=== PATIENT | male | born 1960 | race Caucasian/White ===

== ENCOUNTER 2016-08-30 06:13 | Emergency (ER) | payer OTHER ==
--- NOTE | 2016-08-30 08:26 | EDDOCDS ---
Nurse's Notes [facility] Name: Murtaza Queen Age: 56 yrs Sex: Male : 1960 Arrival Date: 08/30/2016 Time: 06:13 Bed I5 / M5 Private MD: Diagnosis: Fall on same level from slipping, tripping and stumbling;Contusion of left elbow Presentation: 08/30 06:20 Presenting complaint: Patient states: Fell yesterday at approx 3-4pm landing on left kmg1 elbow. This morning woke with swelling in left hand and pain left elbow. Suicide/Homicide risk assessment- the patient denies having any suicidal and/or homicidal ideations and does not present with any other emotional, behavioral or mental health complaints. Status: Patient is not a service delivery consultant or dependent. Transition of care: patient was not received from another setting of care. 06:20 Acuity: MULU Level 4 km 06:20 Method Of Arrival: Walkin[place] [facility] Adult Sepsis Screening: The patient does not have new or worsening altered mentation. ck1 Patient's respiratory rate is less than 22. Systolic blood pressure is greater than 100. Patient has a qSOFA score of 0- Negative Sepsis Screen. Triage Assessment: 06:24 General: Appears in no apparent distress, comfortable, Behavior is appropriate for age, kmg1 cooperative, pleasant. Pain: Location: left elbow Pain currently is 1 out of 10 on a pain scale. Quality of pain is described as aching, tender. HIV screening NA for this visit. Musculoskeletal: Circulation, motion, and sensation intact Capillary refill < 3 seconds Swelling present in left hand and left arm. Historical: - Allergies: No known drug Allergies; - Home Meds: 1. naproxen 500 mg Oral TbEC 1 tab 2 times per day for Bursitis (Last dose: 08/29/2016) - PMHx: none; - PSHx: right hand surgery; - Social history: Smoking status: Patient states former smoker of tobacco. No barriers to communication noted, The patient speaks fluent Uruguayan, Speaks appropriately for age. - Family history: Not pertinent. - : The pt / caregiver states he / she is not on anticoagulants. Home medication list is obtained from the patient. - Exposure Risk Screening:: None identified. Screenin:38 Screening information is obtained from the patient. Primary language is Uruguayan. Fall ck1 risk: No risks identified. Assistance ADL's: requires no assistance with activities of daily living. Abuse/DV Screen: The patient / caregiver reports he/she is: not in a situation that causes fear, pain or injury. Nutritional screening: No deficits noted. Advance Directives: Currently, there is no health care proxy. 07:39 home support is adequate. ck1 Assessment: 07:39 General: Appears in no apparent distress, comfortable, Behavior is appropriate for age, ck1 cooperative. Pain: Complains of pain in left elbow Pain currently is 1 out of 10 on a pain scale. Awake, alert, oriented. Skin warm and dry. Moves all extremities. Respirations unlabored. No apparent distress. The patient / caregiver is instructed regarding the plan of care and ED course. Physical assessment to be completed by PA/EDMD. 08:24 General: Appears in no apparent distress, comfortable, Behavior is appropriate for age, ck1 cooperative. Pain: Location: left elbow Pain currently is 1 out of 10 on a pain scale. Derm: Skin is intact, is healthy with good turgor, Skin is pink, warm & dry. Musculoskeletal: Circulation, motion, and sensation intact Range of motion intact in all extremities. Vital Signs: 06:24 BP 136 / 106; Pulse 84; Resp 18; Temp 96.3(O); Pulse Ox 96% on R/A; Weight 95.25 kg [facility] (R); Height 5 ft. 8 in. (172.72 cm) (R); Pain 1/10; 08:23 BP 140 / 92 RA Supine (man/lg); jml1 08:23 Pulse 72; Resp 18; Temp 98.4(TE); Pulse Ox 97% on R/A; Pain 1/10; ck1 06:24 Body Mass Index 31.93 (95.25 kg, 172.72 cm) [facility] Vitals: 06:24 Log In Time: August 30, 2016 at 06:15. [facility] [place] Course: 06:14 Patient visited by Lavinia Aguilar Reg. hs2 06:14 Patient moved to Waiting hs2 06:22 Triage Initiated [facility] 07:08 Patient moved to I5 / ck1 07:09 Patient visited by Jany Bean RN. ck1 07:33 Mandeep Woo PA-C is [facility]. cc10 07:33 Christine Díaz MD is Attending Physician. cc10 07:33 Patient visited by Mandeep Woo PA-C. cc10 07:33 Patient visited by Mandeep Woo PA-C. cc10 07:40 Patient has correct armband on for positive identification. Bed in low position. Call ck1 light in reach. Side rails up X 1. 08:13 [facility] is Referral Physician. cc10 08:16 Patient visited by Kade Ramos. l1 08:23 No IV's were initiated during this patient's visit. No procedures done that require ck1 assistance. Sling applied to left arm. Patient with positive distal sensation and brisk distal capillary refill after application. Order Results: There are currently no results for this order. Outcome: 08:13 Discharge ordered by Provider. cc10 08:24 Discharge Assessment: Patient awake, alert and oriented x 3. No cognitive and/or ck1 functional deficits noted. Patient verbalized understanding of disposition instructions. patient administered narcotics - no. The following High Risk Discharge criteria are identified: None. Discharged to home ambulatory. Condition: stable. Discharge instructions given to patient, Instructed on discharge instructions, follow up and referral plans. medication usage, Demonstrated understanding of instructions, medications, Pt was receptive of discharge instructions/ teaching. Prescriptions given X 1. No special radiology studies were completed. Property :Personal belongings accompany Pt. 08:24 Patient left the ED. ck1 Signatures: Maria Teresa Felton, RN RN km Jany Bean RN RN ck1 Kade Ramos [facility] Mandeep Woo PA-C PA-C cc10 Aguilar Lavinia, Reg Reg hs2 MTDD
--- NOTE | 2016-08-30 08:26 | EDDOCDS ---
Physician Documentation [facility] Name: Murtaza Queen Age: 56 yrs Sex: Male : 1960 Arrival Date: 08/30/2016 Time: 06:13 Bed I5 / M5 Private MD: Disposition: 08/30/16 08:13 Discharged to Home/Self Care. Impression: Fall on same level from slipping, tripping and stumbling, Contusion of left elbow. - Condition is Stable. - Discharge Instructions: Elbow Contusion. - Prescriptions for Ultram 50 mg Oral Tablet - take 1 tablet by ORAL route every 6 hours As needed MDD: 4 tabs; 20 tablet. - Medication Reconciliation, [facility] Followup form. - Follow up: [facility]; When: Call to arrange an appointment; Reason: Wound/Symptom Recheck, Recheck today's complaints, Worsening of conditions, Continuance of care. - Problem is new. - Symptoms are unchanged. Historical: - Allergies: No known drug Allergies; - Home Meds: 1. naproxen 500 mg Oral TbEC 1 tab 2 times per day for Bursitis (Last dose: 08/29/2016) - PMHx: none; - PSHx: right hand surgery; - Social history: Smoking status: Patient states former smoker of tobacco. No barriers to communication noted, The patient speaks fluent Grenadian, Speaks appropriately for age. - Family history: Not pertinent. - : The pt / caregiver states he / she is not on anticoagulants. Home medication list is obtained from the patient. - Exposure Risk Screening:: None identified. Vital Signs: 08/30 06:24 BP 136 / 106; Pulse 84; Resp 18; Temp 96.3(O); Pulse Ox 96% on R/A; Weight 95.25 kg / kmg1 209.99 lbs (R); Height 5 ft. 8 in. (172.72 cm) (R); Pain 1/10; 08:23 BP 140 / 92 RA Supine (man/lg); jml1 08:23 Pulse 72; Resp 18; Temp 98.4(TE); Pulse Ox 97% on R/A; Pain 1/10; ck1 06:24 Body Mass Index 31.93 (95.25 kg, 172.72 cm) kmg1 MDM: 06:33 Forearm (radius/ulna) Ordered. EDMS 06:33 Hand, Complete Ordered. EDMS 07:50 Financial registration complete. mm15 07:55 Elbow, Complete Ordered. EDMS 08:12 Sling ordered. cc10 Signatures: Dispatcher [employer] EDMS Maria Teresa Felton, RN RN kmg1 Jany Bean RN RN ck1 Orlando Reynolds mm15 Mandeep Woo PA-C PAJose Enrique cc10 MTDD
--- NOTE | 2016-08-30 12:44 | REP ---
LEFT FOREARM SERIES, COMPLETE: 08/30/2016. Clinical history: Trauma. Findings: Two views show the radius and ulna without visible or displaced fractures. There is no radiopaque foreign body. Radial head and capitellum align normally. I see no definite avulsion. Impression: 1. No visible fracture, radius or ulna and adjacent wrist and elbow grossly intact. Signed by Tevin Reynaga MD 08/30/2016 07:18 P
--- NOTE | 2016-08-30 12:46 | REP ---
LEFT HAND SERIES, COMPLETE: 08/30/2016. Comparison: Left forearm 08/30/2016, hand 12/10/2013. Clinical history: Trauma. Findings: Four views show no fracture, subluxation or focal bone lesion. The carpal bones and their joint spaces were intact. Metacarpals and phalanges unremarkable. No erosion, foreign body or destructive lesions. Impression: 1. Negative left hand series for fracture, avulsion, erosion or subluxation. Signed by Tevin Reynaga MD 08/30/2016 07:18 P
--- NOTE | 2016-08-30 13:32 | REP ---
LEFT ELBOW SERIES COMPLETE: 08/30/2016. Comparison: Forearm series today. Clinical history: Trauma. Findings: Four views show some soft tissue calcification adjacent to the medial epicondyle consistent with some medial epicondylitis. There is no supracondylar fracture or destructive lesion of the humerus. Radial head and capitellum align normally and are without fracture. The olecranon is intact. There is some soft tissue swelling about the posterior margin of the olecranon but no avulsion of the triceps insertion. No joint effusion. Impression: 1. Findings suggest some epicondylitis about the medial epicondyle without acute fracture, avulsion, joint effusion or other acute bony finding. Minor swelling over the olecranon. Signed by Tevin Reynaga MD 08/30/2016 07:21 P
--- NOTE | 2016-09-01 09:26 | EDDOCDS ---
Physician Documentation [facility] Name: Murtaza Queen Age: 56 yrs Sex: Male : 1960 Arrival Date: 08/30/2016 Time: 06:13 Bed I5 / M5 Private MD: Disposition: 08/30/16 08:13 Discharged to Home/Self Care. Impression: Fall on same level from slipping, tripping and stumbling, Contusion of left elbow. - Condition is Stable. - Discharge Instructions: Elbow Contusion. - Prescriptions for Ultram 50 mg Oral Tablet - take 1 tablet by ORAL route every 6 hours As needed MDD: 4 tabs; 20 tablet. - Medication Reconciliation, [facility] Followup form. - Follow up: [facility]; When: Call to arrange an appointment; Reason: Wound/Symptom Recheck, Recheck today's complaints, Worsening of conditions, Continuance of care. - Problem is new. - Symptoms are unchanged. Historical: - Allergies: No known drug Allergies; - Home Meds: 1. naproxen 500 mg Oral TbEC 1 tab 2 times per day for Bursitis (Last dose: 08/29/2016) - PMHx: none; - PSHx: right hand surgery; - Social history: Smoking status: Patient states former smoker of tobacco. No barriers to communication noted, The patient speaks fluent Malagasy, Speaks appropriately for age. - Family history: Not pertinent. - : The pt / caregiver states he / she is not on anticoagulants. Home medication list is obtained from the patient. - Exposure Risk Screening:: None identified. Vital Signs: 08/30 06:24 BP 136 / 106; Pulse 84; Resp 18; Temp 96.3(O); Pulse Ox 96% on R/A; Weight 95.25 kg / kmg1 209.99 lbs (R); Height 5 ft. 8 in. (172.72 cm) (R); Pain 1/10; 08:23 BP 140 / 92 RA Supine (man/lg); jml1 08:23 Pulse 72; Resp 18; Temp 98.4(TE); Pulse Ox 97% on R/A; Pain 1/10; ck1 06:24 Body Mass Index 31.93 (95.25 kg, 172.72 cm) kmg1 MDM: 06:33 Forearm (radius/ulna) Ordered. EDMS 06:33 Hand, Complete Ordered. EDMS 07:50 Financial registration complete. mm15 07:55 Elbow, Complete Ordered. EDMS 08:12 Sling ordered. cc10 09:48 [facility] Payment Agreement was scanned into [employer] and attached to record. mm15 08/31 14:06 T-Sheet-- Draft Copy was scanned into [employer] and attached to record. gb Signatures: Dispatcher [employer] EDMS Maria Teresa Felton, CEZAR RN kmg1 Estelita Jhaveri, Reg Reg gb Jany Bean RN RN ck1 Orlando Reynolds mm15 Mandeep Woo, PA-C PA-C cc10 The chart was reviewed and I authenticate all verbal orders and agree with the evaluation and treatment provided.Attachments: 08/30 09:48 [facility] Payment Agreement mm15 08/31 14:06 T-Sheet-- Draft Copy gb Chart Complete MTDD
--- NOTE | 2016-09-01 09:26 | EDDOCDS ---
Nurse's Notes [facility] Name: Murtaza Queen Age: 56 yrs Sex: Male : 1960 Arrival Date: 08/30/2016 Time: 06:13 Bed I5 / M5 Private MD: Diagnosis: Fall on same level from slipping, tripping and stumbling;Contusion of left elbow Presentation: 08/30 06:20 Presenting complaint: Patient states: Fell yesterday at approx 3-4pm landing on left kmg1 elbow. This morning woke with swelling in left hand and pain left elbow. Suicide/Homicide risk assessment- the patient denies having any suicidal and/or homicidal ideations and does not present with any other emotional, behavioral or mental health complaints. Status: Patient is not a business services sales representative or dependent. Transition of care: patient was not received from another setting of care. 06:20 Acuity: MULU Level 4 km 06:20 Method Of Arrival: [place]/[facility]std [facility] 07:[place] Adult Sepsis Screening: The patient does not have new or worsening altered mentation. ck1 Patient's respiratory rate is less than 22. Systolic blood pressure is greater than 100. Patient has a qSOFA score of 0- Negative Sepsis Screen. Triage Assessment: 06:24 General: Appears in no apparent distress, comfortable, Behavior is appropriate for age, kmg1 cooperative, pleasant. Pain: Location: left elbow Pain currently is 1 out of 10 on a pain scale. Quality of pain is described as aching, tender. HIV screening NA for this visit. Musculoskeletal: Circulation, motion, and sensation intact Capillary refill < 3 seconds Swelling present in left hand and left arm. Historical: - Allergies: No known drug Allergies; - Home Meds: 1. naproxen 500 mg Oral TbEC 1 tab 2 times per day for Bursitis (Last dose: 08/29/2016) - PMHx: none; - PSHx: right hand surgery; - Social history: Smoking status: Patient states former smoker of tobacco. No barriers to communication noted, The patient speaks fluent Nepalese, Speaks appropriately for age. - Family history: Not pertinent. - : The pt / caregiver states he / she is not on anticoagulants. Home medication list is obtained from the patient. - Exposure Risk Screening:: None identified. Screenin:38 Screening information is obtained from the patient. Primary language is Nepalese. Fall ck1 risk: No risks identified. Assistance ADL's: requires no assistance with activities of daily living. Abuse/DV Screen: The patient / caregiver reports he/she is: not in a situation that causes fear, pain or injury. Nutritional screening: No deficits noted. Advance Directives: Currently, there is no health care proxy. 07:39 home support is adequate. ck1 Assessment: 07:39 General: Appears in no apparent distress, comfortable, Behavior is appropriate for age, ck1 cooperative. Pain: Complains of pain in left elbow Pain currently is 1 out of 10 on a pain scale. Awake, alert, oriented. Skin warm and dry. Moves all extremities. Respirations unlabored. No apparent distress. The patient / caregiver is instructed regarding the plan of care and ED course. Physical assessment to be completed by PA/EDMD. 08:24 General: Appears in no apparent distress, comfortable, Behavior is appropriate for age, ck1 cooperative. Pain: Location: left elbow Pain currently is 1 out of 10 on a pain scale. Derm: Skin is intact, is healthy with good turgor, Skin is pink, warm & dry. Musculoskeletal: Circulation, motion, and sensation intact Range of motion intact in all extremities. Vital Signs: 06:24 BP 136 / 106; Pulse 84; Resp 18; Temp 96.3(O); Pulse Ox 96% on R/A; Weight 95.25 kg [facility] (R); Height 5 ft. 8 in. (172.72 cm) (R); Pain 1/10; 08:23 BP 140 / 92 RA Supine (man/lg); jml1 08:23 Pulse 72; Resp 18; Temp 98.4(TE); Pulse Ox 97% on R/A; Pain 1/10; ck1 06:24 Body Mass Index 31.93 (95.25 kg, 172.72 cm) [facility] Vitals: 06:24 Log In Time: August 30, 2016 at 06:15. [facility] [place] Course: 06:14 Patient visited by Lavinia Aguilar Reg. hs2 06:14 Patient moved to Waiting hs2 06:22 Triage Initiated [facility] 07:08 Patient moved to I5 / ck1 07:09 Patient visited by Jany Bean RN. ck1 07:33 [facility]. cc10 07:33 Christine Díaz MD is Attending Physician. cc10 07:33 Patient visited by Mandeep Woo PA-C. cc10 07:33 Patient visited by Mandeep Woo PA-C. cc10 07:40 Patient has correct armband on for positive identification. Bed in low position. Call ck1 light in reach. Side rails up X 1. 08:13 [facility] is Referral Physician. cc10 08:16 Patient visited by Kade Ramos. jml1 08:23 No IV's were initiated during this patient's visit. No procedures done that require ck1 assistance. Sling applied to left arm. Patient with positive distal sensation and brisk distal capillary refill after application. 09:48 [facility] Payment Agreement was scanned into [employer] and attached to record. mm15 12:47 Forearm (radius/ulna) Returned. EDMS 12:47 Hand, Complete Returned. EDMS 13:56 Elbow, Complete Returned. EDMS 08/31 14:06 T-Sheet-- Draft Copy was scanned into [employer] and attached to record. gb Order Results: Radiology Order: Forearm (radius/ulna) Test: Forearm (radius/ulna) REASON FOR EXAMINATION: Trauma; LEFT FOREARM SERIES, COMPLETE: 08/30/2016.; ; Clinical history: Trauma.; ; Findings: Two views show the radius and ulna without visible or displaced; fractures. There is no radiopaque foreign body. Radial head and capitellum; align normally. I see no definite avulsion.; ; Impression:; ; 1. No visible fracture, radius or ulna and adjacent wrist and elbow grossly; intact.; ; ; Signed by; Tevin Reynaga MD 08/30/2016 07:18 P; Radiology Order: Hand, Complete Test: Hand, Complete REASON FOR EXAMINATION: Trauma; LEFT HAND SERIES, COMPLETE: 08/30/2016.; ; Comparison: Left forearm 08/30/2016, hand 12/10/2013.; ; Clinical history: Trauma.; ; Findings: Four views show no fracture, subluxation or focal bone lesion. The; carpal bones and their joint spaces were intact. Metacarpals and phalanges; unremarkable. No erosion, foreign body or destructive lesions.; ; Impression:; ; 1. Negative left hand series for fracture, avulsion, erosion or subluxation.; ; ; Signed by; Tevin Reynaga MD 08/30/2016 07:18 P; Radiology Order: Elbow, Complete Test: Elbow, Complete REASON FOR EXAMINATION: Trauma; LEFT ELBOW SERIES COMPLETE: 08/30/2016.; ; Comparison: Forearm series today.; ; Clinical history: Trauma.; ; Findings: Four views show some soft tissue calcification adjacent to the medial; epicondyle consistent with some medial epicondylitis. There is no supracondylar; fracture or destructive lesion of the humerus. Radial head and capitellum align; normally and are without fracture. The olecranon is intact. There is some soft; tissue swelling about the posterior margin of the olecranon but no avulsion of; the triceps insertion. No joint effusion.; ; Impression:; ; 1. Findings suggest some epicondylitis about the medial epicondyle without acute; fracture, avulsion, joint effusion or other acute bony finding. Minor swelling; over the olecranon.; ; ; Signed by; Tevin Reynaga MD 08/30/2016 07:21 P; Outcome: 08/30 08:13 Discharge ordered by Provider. cc10 08:24 Discharge Assessment: Patient awake, alert and oriented x 3. No cognitive and/or ck1 functional deficits noted. Patient verbalized understanding of disposition instructions. patient administered narcotics - no. The following High Risk Discharge criteria are identified: None. Discharged to home ambulatory. Condition: stable. Discharge instructions given to patient, Instructed on discharge instructions, follow up and referral plans. medication usage, Demonstrated understanding of instructions, medications, Pt was receptive of discharge instructions/ teaching. Prescriptions given X 1. No special radiology studies were completed. Property :Personal belongings accompany Pt. 08:24 Patient left the ED. ck1 Signatures: Dispatcher [employer] EDMS Maria Teresa Felton RN RN kmg1 Estelita Jhaveri, Reg Reg gb Jany Bean RN RN ck1 Kade Ramos jml1 Orlando Reynolds mm15 Mandeep Woo, PA-C PA-C cc10 Lavinia Aguilar, Reg Reg hs2 Chart Complete MTDD
--- NOTE | 2016-09-01 09:26 | EDDOCDS ---
Physician Documentation [facility] Name: Murtaza Queen Age: 56 yrs Sex: Male : 1960 Arrival Date: 08/30/2016 Time: 06:13 Bed I5 / M5 Private MD: Disposition: 08/30/16 08:13 Discharged to Home/Self Care. Impression: Fall on same level from slipping, tripping and stumbling, Contusion of left elbow. - Condition is Stable. - Discharge Instructions: Elbow Contusion. - Prescriptions for Ultram 50 mg Oral Tablet - take 1 tablet by ORAL route every 6 hours As needed MDD: 4 tabs; 20 tablet. - Medication Reconciliation, [facility] Followup form. - Follow up: [facility]; When: Call to arrange an appointment; Reason: Wound/Symptom Recheck, Recheck today's complaints, Worsening of conditions, Continuance of care. - Problem is new. - Symptoms are unchanged. Historical: - Allergies: No known drug Allergies; - Home Meds: 1. naproxen 500 mg Oral TbEC 1 tab 2 times per day for Bursitis (Last dose: 08/29/2016) - PMHx: none; - PSHx: right hand surgery; - Social history: Smoking status: Patient states former smoker of tobacco. No barriers to communication noted, The patient speaks fluent Georgian, Speaks appropriately for age. - Family history: Not pertinent. - : The pt / caregiver states he / she is not on anticoagulants. Home medication list is obtained from the patient. - Exposure Risk Screening:: None identified. Vital Signs: 08/30 06:24 BP 136 / 106; Pulse 84; Resp 18; Temp 96.3(O); Pulse Ox 96% on R/A; Weight 95.25 kg / kmg1 209.99 lbs (R); Height 5 ft. 8 in. (172.72 cm) (R); Pain 1/10; 08:23 BP 140 / 92 RA Supine (man/lg); jml1 08:23 Pulse 72; Resp 18; Temp 98.4(TE); Pulse Ox 97% on R/A; Pain 1/10; ck1 06:24 Body Mass Index 31.93 (95.25 kg, 172.72 cm) kmg1 MDM: 06:33 Forearm (radius/ulna) Ordered. EDMS 06:33 Hand, Complete Ordered. EDMS 07:50 Financial registration complete. mm15 07:55 Elbow, Complete Ordered. EDMS 08:12 Sling ordered. cc10 09:48 [facility] Payment Agreement was scanned into [employer] and attached to record. mm15 08/31 14:06 T-Sheet-- Draft Copy was scanned into [employer] and attached to record. gb Signatures: Dispatcher [employer] EDMS Maria Teresa Felton, CEZAR RN kmg1 Estelita Jhaveri, Reg Reg gb Jany Bean RN RN ck1 Orlando Reynolds mm15 Mandeep Woo, PA-C PA-C cc10 The chart was reviewed and I authenticate all verbal orders and agree with the evaluation and treatment provided.Attachments: 08/30 09:48 [facility] Payment Agreement mm15 08/31 14:06 T-Sheet-- Draft Copy gb Chart Complete MTDD
== END 2016-08-30 08:24 | disposition home or self-care (01) ==
LOC: M ED 06:13
DX: S50.02XA Contusion of left elbow, initial encounter (principal); W00.9XXA Unspecified fall due to ice and snow, initial encounter; Y92.410 Unspecified street and highway as the place of occurrence of the external cause; Y93.89 Activity, other specified; Y99.8 Other external cause status; Z79.1 Long term (current) use of non-steroidal anti-inflammatories (NSAID); Z87.891 Personal history of nicotine dependence

== ENCOUNTER → 2016-10-06 | Outpatient (REF) | payer OTHER | LOC: M LABNEURO 10:32 | PROVIDERS: ATTEND Psychiatry & Neurology Neurology | DX: G25.81 Restless legs syndrome (principal) ==

== ENCOUNTER → 2016-10-09 | Outpatient (CLI) | payer OTHER ==
--- NOTE | 2016-10-09 11:13 | REP ---
Clinical: Shortness of breath . Comparison: 07/07/2010 . Technique: PA and lateral. Findings: The mediastinum and cardiac silhouette are normal. The lung wilhelm are clear and without acute consolidation, effusion, or pneumothorax. The skeletal structures are intact and normal. Impression: 1. No acute cardiopulmonary process. Signed by Pablo Newberry MD 10/09/2016 11:05 A
== END ==
LOC: M WUC 10:41
PROVIDERS: ATTEND Nurse Practitioner Family
DX: R06.02 Shortness of breath (principal)

== ENCOUNTER → 2019-01-14 | Outpatient (CLI) | payer OTHER | LOC: M WUC 15:48 | PROVIDERS: ATTEND Physician Assistant | DX: M25.571 Pain in right ankle and joints of right foot (principal) ==

== ENCOUNTER → 2019-07-20 | Outpatient (CLI) | payer OTHER ==
--- NOTE | 2019-07-20 13:52 | REP ---
Clinical: Sprain . Technique: Internal rotation, external rotation, and Y view right shoulder . Findings: No acute fracture or dislocation. The acromioclavicular and glenohumeral joints are intact. No periarticular calcifications or degenerative changes are appreciated. Sub acromial space is normal. Surrounding soft tissues are unremarkable. Impression: Normal age-appropriate right shoulder radiographs. Electronically Signed by Pablo Newberry MD 07/20/2019 01:44 P
== END ==
LOC: M WUC 13:29
PROVIDERS: ATTEND Physician Assistant
DX: S46.011A Strain of muscle(s) and tendon(s) of the rotator cuff of right shoulder, initial encounter (principal); X58.XXXA Exposure to other specified factors, initial encounter; Y92.89 Other specified places as the place of occurrence of the external cause

== ENCOUNTER 2020-11-12 19:28 | Emergency (ER) | payer OTHER ==
[~2020-11-12] VITALS: Ht 172.7 cm; Wt 96.8 kg
[2020-11-12] MEDS ORDERED: LOSA50TA88 PO (19:49)
[2020-11-12] MEDS ORDERED: NS 1,000 ML IV ONE (20:30)
[2020-11-12] MEDS ORDERED: METOCLOPRAMIDE INJ 10MG/2ML VIAL (J2765 PER 1) IV ONE (20:30)
[2020-11-12] MEDS ORDERED: KETOROLAC 30 MG/ML 1ML VIAL IV ONE (20:30)
[2020-11-12] MEDS ORDERED: diphenhydrAMINE 50MG/ML VIAL (J1200) IV ONE (20:30)
[2020-11-12 20:53] LABS: BASO % 0.1 % (0.0-1.0); EOS % 0.1 % (0.0-3.0); HEMATOCRIT 42.3 % (42.0-52.0); LYMPH # 0.4 10^3/uL (1.5-5.0); LYMPH % 6.3 % (24.0-44.0); MEAN CORPUSCULAR HEMOGLOBIN 29.8 pg (27.0-33.0); MEAN CORPUSCULAR HGB CONC 35.5 g/dl (32.0-36.5); MEAN CORPUSCULAR VOLUME 84.1 fl (80.0-96.0); MONO # 0.4 10^3/uL (0.0-0.8); NEUTROPHILS # 5.9 10^3/uL (1.5-8.5); NEUTROPHILS % 86.6 % (36.0-66.0); PLATELET COUNT, AUTOMATED 165 10^3/uL (150-450); RED BLOOD COUNT 5.03 10^6/uL (4.30-6.10); WHITE BLOOD COUNT 6.8 10^3/uL (4.0-10.0)
[2020-11-12 21:15] LABS: ALBUMIN 3.4 GM/DL (3.2-5.2); ALT/SGPT 26 U/L (12-78); BILIRUBIN,TOTAL 0.9 MG/DL (0.2-1.0); BLOOD UREA NITROGEN 25 MG/DL (7-18); CALCIUM LEVEL 8.1 MG/DL (8.8-10.2); CARBON DIOXIDE LEVEL 25 MEQ/L (21-32); CHLORIDE LEVEL 102 MEQ/L (98-107); CREATININE FOR GFR 0.97 MG/DL (0.70-1.30); GLOMERULAR FILTRATION RATE > 60.0 (>49); GLUCOSE, FASTING 108 MG/DL (70-100); POTASSIUM SERUM 3.4 MEQ/L (3.5-5.1); SODIUM LEVEL 135 MEQ/L (136-145); TOTAL PROTEIN 6.6 GM/DL (6.4-8.2)
[2020-11-12] MEDS ORDERED: ACETAMINOPHEN TAB 650MG DOSE (2X325MG) PO ONE (21:25)
--- NOTE | 2020-11-12 22:08 | REPVR ---
PROCEDURE INFORMATION: Exam: XR Chest Exam date and time: 11/12/2020 9:57 PM Age: 60 years old Clinical indication: Cough; Additional info: Coronavirus workup TECHNIQUE: Imaging protocol: XR of the chest. Views: 1 view. COMPARISON: CR CHEST 2 VIEW 10/09/2016 10:51 AM FINDINGS: Lungs: Suggestion of small peripheral infiltrates demonstrated in both lung bases in right mid lung zone. Clinical correlation to exclude multifocal pneumonitis suggested. Pleural spaces: Unremarkable. No pleural effusion. No pneumothorax. Heart/Mediastinum: Unremarkable. No cardiomegaly. Bones/joints: Unremarkable. IMPRESSION: Suggestion of small peripheral infiltrates demonstrated in both lung bases in right mid lung zone. Clinical correlation to exclude multifocal pneumonitis suggested. Electronically signed by: Nick Michaels On 11/12/2020 22:08:17 PM
[2020-11-12 23:27] VITALS: O2SAT 93
[2020-11-13 00:45] VITALS: BP 128/80
--- NOTE | 2020-11-13 09:19 | ED PDOC ---
Post-Departure Follow-Up cxr formal report faxed to dr schaefer for fu Christine Suarez MD Nov 13, 2020 09:19
== END 2020-11-13 00:55 | disposition home or self-care (01) ==
LOC: M ED 19:28
DX: U07.1 COVID-19 (principal); G43.909 Migraine, unspecified, not intractable, without status migrainosus; I10 Essential (primary) hypertension
CPT/HCPCS: 71045; 80053; 85025; 96361; 96374; 99285; J1200; J1885; J2765

== ENCOUNTER → 2021-06-14 | Outpatient (CLI) | payer OTHER ==
[~2021-06-14] MED LIST: BAYE81TA10 PO; LOSA50TA88 PO
== END ==
LOC: M LABSMTC 11:40
PROVIDERS: ATTEND Anesthesiology
DX: Z01.818 Encounter for other preprocedural examination (principal); Z11.52 Encounter for screening for COVID-19

== ENCOUNTER 2021-06-19 10:28 | Day surgery (SDC) | payer OTHER ==
[~2021-06-19] VITALS: Ht 172.7 cm; Wt 96.2 kg
[~2021-06-19 10:28] MED LIST changes: +LIDOCAINE 2% 100MG/5ML SDV (FOR ANES.) As Ordered ONE; +NS 1,000 ML IV ONE; +propofoL 200 MG/20 ML VIAL As Ordered ONE
--- OUTSIDE RECORDS SUMMARY | 2021-06-19 10:36 | CCD | Continuity of Care Document ---
Author Author Lab Schedule, Murtaza Jara Organization Unknown Address [address] [address] Phone Unavailable Care Team Providers Care Feed In Worker Name Role Phone Kiko Conteh MD [facility] [phone] Problems Description No Information Available Social History Type Date Description Comments Sex Unknown ETOH Use Rarely consumes alcohol Special occasions only Tobacco Use Start: Unknown End: Unknown Patient is a former smoker 1 PPD x 15 yrs, Quit at age 29 Allergies, Adverse Reactions, Alerts Description No Known Drug Allergies Medications Active Medications SIG Qnty Indications Ordering Provide r Date Cozaar 50mg Tablets 1 by mouth every day 90tabs Kiko Conteh M.D. 05/26/2019 History Medications Zithromax 250mg Tablets 2 tablets today and then one daily x 4 6tabs Kiko Conteh M.D. 10/18 - 04/11/2021 Prednisone 20mg Tablets 3 tabs x 3 days, then 2 tabs x3 days then 1 tab x 3 days then 1/2 tab x 4 days. 20tabs Kiko Conteh M.D. 11/08/2020 - 04/11/2021 Medications Administered in Office Medication SIG Qnty Indications Ordering Provider Date Immunization Adminstration,1 Vaccine/Tox oid Injection Kiko Conteh M.D. 019 Immunization Adminstration,1 Vaccine/Tox oid Injection Kiko Conteh M.D. 018 Immunizations CPT Code Status Date Vaccine Lot # [id number] Given 05/10/2019 Influenza Vaccin e Quadrivalent Preser/Antibiotic Free Im Use [id number] Given 05/09/2018 Influenza Virus Vaccine, Quadrivalent (Cciiv4), Derived From 1 Given 05/06/2017 Adacel- Tetanus Diphtheria P ertussis [id number] Vital Signs Date Vital Result Comment 04/11/2021 2:31pm BP Systolic 144 mmHg BP Diastolic 98 mmHg BP Systolic Recheck 145 mmHg BP Diastolic Recheck 90 mmHg Heart Rate 76 /min Height 67.50 inches 5'7.50" Weight 214.00 lb BMI (Body Mass Index) 33.0 kg/m2 05/13/2020 8:07am BP Systolic 132 mmHg BP Diastolic 94 mmHg BP Systolic Recheck 130 mmHg BP Diastolic Recheck 82 mmHg Heart Rate 76 /min Height 67.50 inches 5'7.50" Weight 214.00 lb BMI (Body Mass Index) 33.0 kg/m2 Results Test Acquired Date Facility Test Result H/L Range Note Comprehensive Chem Profile 04/10/2021 [facility] Oral Surgery Assistant: [place] [address] [phone] Glucose 86 mg/dL 74 - 99 1 BUN 20 mg/dL High 7 - 18 Creatinine 1.1 mg/dL 0.6 - 1.3 Sodium 141 mEq/L 136 - 145 Potassium 4.4 mEq/L 3.5 - 5.1 Chloride 106 mEq/L 98 - 107 Carbon Dioxide 30 mEq/L 21 - 32 Calcium 9.4 mg/dL 8.5 - 10.1 Alk. Phosphatase 83 mg/dL 46 - 116 Total Bilirubin 1.1 mg/dL High 0.2 - 1.0 Ast (Sgot) 16 U/L 15 - 37 Alt (SGPT) 35 U/L 12 - 78 Albumin 4.3 g/dL 3.4 - 5.0 Total Protein 6.8 g/dL 6.4 - 8.2 A/G Ratio 1.72 CALC 1.00 - 1.90 GFR >= 60 mL/min >60 GFR >= 60 mL/min >60 2 Lipid Profile 04/10/2021 [facility] [place] Oral Surgery Assistant: Dr El[place] [address] [phone] Cholesterol 192 mg/dL 131 - 200 Triglycerides 89 mg/dL 30 - 150 HDL Cholesterol 42 mg/dL 35 - 60 LDL (Calculated) 132 CALC 50 - 159 CBC With Differential 11/12/[address] [id number] [phone] White Blood Count 6.8 10 Normal 4.0-10.0 Red Blood Count 5.03 10 Normal 4.30-6.10 Hemoglobin 15.0 g/dL Normal 13.5-17.5 Hematocrit 42.3 % Normal 42.0-52.0 Mean Corpuscular Volume 84.1 fl Normal 80.0-96.0 Mean Corpuscular Hemoglobin 29.8 pg Normal 27.0-33.0 Mean Corpuscular HGB Conc 35.5 g/dL Normal 32.0-36.5 Red Cell Distribution Width 11.3 % Low 11.5-14.5 Platelet Count, Automated 165 10 Normal 150-450 Neutrophils % 86.6 % High 36.0-66.0 Lymph % 6.3 % Low 24.0-44.0 Towns % 6.0 % Normal 2.0-8.0 Eos % 0.1 % Normal 0.0-3.0 Baso % 0.1 % Normal 0.0-1.0 Immature Granulocyte % 0.9 % Normal 0-3.0 Nucleated Red Blood Cell % 0.0 % Normal 0-0 Neutrophils # 5.9 10 Normal 1.5-8.5 Lymph # 0.4 10 Low 1.5-5.0 Towns # 0.4 10 Normal 0.0-0.8 Eos # 0.0 10 Normal 0.0-0.5 Baso # 0.0 10 Normal 0.0-0.2 Comprehensive Metabolic Profil 11/12/[address] [id number] [phone] Glucose, Fasting 108 mg/dL High 70-100 Blood Urea Nitrogen 25 mg/dL High 7-18 Creatinine For GFR 0.97 mg/dL Normal 0.70-1.30 Glomerular Filtration Rate > 60.0 Normal >49 3 Sodium Level 135 mEq/L Low 136-145 Potassium Serum 3.4 mEq/L Low 3.5-5.1 Chloride Level 102 mEq/L Normal 98-107 Carbon Dioxide Level 25 mEq/L Normal 21-32 Anion Gap 8 mEq/L Normal 8-16 Calcium Level 8.1 mg/dL Low 8.8-10.2 Ast/Sgot 23 U/L Normal 7-37 Alt/SGPT 26 U/L Normal 12-78 Alkaline Phosphatase 58 U/L Normal 45-117 Bilirubin,Total 0.9 mg/dL Normal 0.2-1.0 Total Protein 6.6 GM/DL Normal 6.4-8.2 Albumin 3.4 GM/DL Normal 3.2-5.2 Albumin/Globulin Ratio 1.1 Normal 1 100-125 mg/dL PRE-DIABET ES/FASTING >126 mg/dL DIABETES/FASTING 2 CHRONIC KIDNEY DISEASE STAGI NG PER NKF STAGE I & II GFR >= 60 NORMAL TO MILDLY DECREASED STAGE III GFR 30-59 MODERATELY DECREASED STAGE IV GFR 15-29 SEVERELY DECREASED STAGE V GFR <15 VERY LITTLE GFR LEFT ESRD GFR <15 ON PAINTER APPRENTICE 3 Units are mL/min/1.73 m2 Chronic Kidney Disease Staging per NKF: Stage I & II GFR >=60 Normal to Mildly Decreased Stage III GFR 30-59 Moderately Decreased Stage IV GFR 15-29 Severely Decreased Stage V GFR <15 Very Little GFR Left ESRD GFR <15 on PAINTER APPRENTICE Procedures Date Code Description Status 10/02/2010 [id number] Colonoscopy Completed Medical Devices Description No Information Available Encounters Description No Information Available Assessments Date Code Description Provider 04/11/2021 E78.5 Hyperlipidemia, unspecified David Conteh M.D. 04/11/2021 I10 Essential (primary) hypertension Kiko Conteh M.D. 04/11/2021 G47.33 Obstructive sleep apnea (adult) (pediatric) Kiko Conteh M.D. 04/11/2021 Z86.16 Personal history of Covid-19 Alonzo Conteh M.D. 04/10/2021 I10 Essential (primary) hypertension Kiko Conteh M.D. 04/10/2021 I10 Essential (primary) hypertension Lab Schedule 04/10/2021 E78.5 Hyperlipidemia, unspecified David Conteh M.D. 04/10/2021 E78.5 Hyperlipidemia, unspecified Lab Schedule Plan of Treatment Future Appointment(s):* 10/02/2021 7:40 am - Lab Schedule at [facility] * 10/03/2021 8:00 am - Kiko Conteh M.D. at [facility] * 05/12/2021 8:00 am - ROBERT Kan JR at [facility] 04/11/2021 - Kiko Conteh M.D.* E78.5 Hyperlipidemia, unspecified * I10 Essential (primary) hypertension * G47.33 Obstructive sleep apnea (adult) (pediatric) * Z86.16 Personal history of Covid-19 * * Comments:* 1. Hyperlipidemia: Cholesterol is slightly high. We discussed about his 10 year risk, which is high at 10%. We also discussed importance of taking baby aspirin and statin medication to prevent heart attack and stroke. Patient is not interested at this point, but will work on dietary changes especially will avoid junk foods. We will continue to monitor.2. Hypertension: Restart Cozaar (stopped on own). His blood pressure was high initially as well as on recheck.3. Obstructive sleep apnea: Patient has not been using CPAP. We again discussed today the importance of using CPAP and associated risk of stroke or heart attack without treatment of sleep apnea.4. Personal history of Covid-19: No lingering symptoms. Headaches improved. We will monitor.Ongoing cares: Will see Ted in 1 month for a blood pressure follow up specifically and me in 5 months with CMP, lipids and TSH. If he has new problems or issues sooner he will let us know. Functional Status Description No Information Available Mental Status Description No Information Available Referrals Description No Information Available
--- OUTSIDE RECORDS SUMMARY | 2021-06-19 10:36 | CCD | Continuity of Care Document ---
Author Author Murtaza REYES M.D. Organization Unknown Address [address] [facility] [address] [place] [address] Phone [phone] Care Team Providers Care Land Leveler Name Role Phone [facility] MD [facility] [phone] Problems Description No Information Available Social History Type Date Description Comments Sex Unknown ETOH Use Rarely consumes alcohol Special occasions only Tobacco Use Start: Unknown End: Unknown Patient is a former smoker 1 PPD x 15 yrs, Quit at age 29 Allergies and adverse reactions Description No Known Drug Allergies Medications Active Medications SIG Qnty Indications Ordering Provide r Date Cozaar 50mg Tablets 1 by mouth every day 90tabs Kiko Reyes M.D. 05/26/2019 History Medications Zithromax 250mg Tablets 2 tablets today and then one daily x 4 6tabs Kiko Reyes M.D. 10/18 - 04/11/2021 Prednisone 20mg Tablets 3 tabs x 3 days, then 2 tabs x3 days then 1 tab x 3 days then 1/2 tab x 4 days. 20tabs Kiko Reyes M.D. 11/08/2020 - 04/11/2021 Medications Administered in Office Medication SIG Qnty Indications Ordering Provider Date Immunization Adminstration,1 Vaccine/Tox oid Injection Kiko Reyes M.D. 019 Immunization Adminstration,1 Vaccine/Tox oid Injection Kiko Reyes M.D. 018 Immunizations CPT Code Status Date Vaccine Lot # [id number] Given 05/10/2019 Influenza Vaccin e Quadrivalent Preser/Antibiotic Free Im Use [id number] Given 05/09/2018 Influenza Virus Vaccine, Quadrivalent (Cciiv4), Derived From 0 Given 05/06/2017 Adacel- Tetanus Diphtheria P ertussis [id number] Vital Signs Date Vital Result Comment 04/11/2021 [...] H/L Range Note Comprehensive Chem Profile 04/10/2021 [facility] Bread Stacker: [place] [address] [phone] Glucose 86 mg/dL 74 - 99 1 [...] 60 mL/min >60 2 Lipid Profile 04/10/2021 [facility] Bread Stacker: [place] [address] [phone] Cholesterol 192 mg/dL 131 - 200 Triglycerides 89 mg/dL 30 - 150 HDL Cholesterol 42 mg/dL 35 - 60 LDL (Calculated) 132 CALC 50 - 159 CBC With Differential 11/12/2020 [place] [place] [place] [address] [phone] White Blood Count 6.8 10 Normal 4.0-10.0 [...] 36.0-66.0 Lymph % 6.3 % Low 24.0-44.0 [place] % 6.0 % Normal 2.0-8.0 Eos % 0.1 % Normal 0.0-3.0 Baso % 0.1 % Normal 0.0-1.0 Immature Granulocyte % 0.9 % Normal 0-3.0 Nucleated Red Blood Cell % 0.0 % Normal 0-0 Neutrophils # 5.9 10 Normal 1.5-8.5 Lymph # 0.4 10 Low 1.5-5.0 [place] # 0.4 10 Normal 0.0-0.8 Eos # 0.0 10 Normal 0.0-0.5 Baso # 0.0 10 Normal 0.0-0.2 Comprehensive Metabolic Profil 11/12/[address] [id number] [phone] Glucose, Fasting 108 mg/dL High 70-100 Blood [...] LITTLE GFR LEFT ESRD GFR <15 ON MANAGER PERSONAL 3 Units are mL/min/1.73 m2 Chronic Kidney Disease Staging per NKF: Stage I & II GFR >=60 Normal to Mildly Decreased Stage III GFR 30-59 Moderately Decreased Stage IV GFR 15-29 Severely Decreased Stage V GFR <15 Very Little GFR Left ESRD GFR <15 on MANAGER PERSONAL Procedures Date Code Description Status 04/11/2021 84152 Office/Outpatient Established Lo w MDM 20-29 Min Completed 10/02/2010 [id number] Colonoscopy Completed Medical Devices Description No Information Available Encounters Type Date Location Provider Dx Diagnosis Office Visit 04/11/2021 2:00p [facility] Kiko Reyes M.D. E78.5 Hyperlipidemia, unspecified I10 Essential (primary) hyperten stephanie G47.33 Obstructive sleep apnea (polo lt) (pediatric) Z86.16 Personal history of Covid-19 Assessments Date Code Description Provider 04/11/2021 E78.5 Hyperlipidemia, unspecified David Reyes M.D. 04/11/2021 I10 Essential (primary) hypertension Kiko Reyes M.D. 04/11/2021 G47.33 Obstructive sleep apnea (adult) (pediatric) Kiko Reyes M.D. 04/11/2021 Z86.16 Personal history of Covid-19 Alonzo Reyes M.D. 04/10/2021 I10 Essential (primary) hypertension Kiko Reyes M.D. 04/10/2021 I10 Essential (primary) hypertension Lab Schedule 04/10/2021 E78.5 Hyperlipidemia, unspecified David Reyes M.D. 04/10/2021 E78.5 Hyperlipidemia, unspecified Lab Schedule Plan of Treatment Future Appointment(s):* 05/19/2021 8:20 am - ROBERT Kan JR at [facility] * 10/02/2021 7:40 am - Lab Schedule at [facility] * 10/03/2021 8:00 am - Kiko Reyes M.D. at [facility] 04/11/2021 - Kiko Reyes M.D.* E78.5 Hyperlipidemia, unspecified * I10 Essential [...] Mental Status Description No Information Available Referrals Refer to Reason for Referral Status Appt Date Gregg Dimas JR, MD CONSULT FOR UMBILICAL HERNIA AND SCREE REBEKA COLONOSCOPY Patient Notified 04/30/2021 [facility] General Surgery [address] [facility] [address] [facility] [address] [phone]
--- OUTSIDE RECORDS SUMMARY | 2021-06-19 10:36 | CCD ---
Continuity of Care Document (CCD) Created on: 05/19/2021 Murtaza Queen JR External Reference #: [id number] : [id number] Sex: Male Author Author Murtaza COLEMAN PA Organization Unknown Address [address] [facility] [address] [place] [address] Phone [phone] Care Team Providers Care Cloth Feeder Name Role Phone Kiko Conteh MD [facility] [phone] Problems Description No Information Available Social History [...] every day 90tabs Kiko Conteh M.D. 05/26/2019 Medications Administered in Office Medication SIG Qnty Indications Ordering Provider Date Immunization Adminstration,1 Vaccine/Tox oid Injection Kiko Conteh M.D. 019 Immunization Adminstration,1 Vaccine/Tox oid Injection Kiko Conteh M.D. 018 Immunizations CPT Code Status Date Vaccine Lot # [id number] Given 05/10/2019 Influenza Vaccin e Quadrivalent Preser/Antibiotic Free Im Use [id number] 01484 Given 05/09/2018 Influenza Virus Vaccine, Quadrivalent (Cciiv4), Derived From 3 Given 05/06/2017 Adacel- Tetanus Diphtheria P ertussis [id number] Vital Signs Date Vital Result Comment 05/19/2021 8:28am BP Systolic 130 mmHg BP Diastolic 80 mmHg Heart Rate 85 /min Height 67.50 inches 5'7.50" Weight 218.00 lb BMI (Body Mass Index) 33.6 kg/m2 04/11/2021 2:31pm BP Systolic 144 mmHg BP Diastolic 98 mmHg BP Systolic Recheck 145 mmHg BP Diastolic Recheck 90 mmHg Heart Rate 76 /min Height 67.50 inches 5'7.50" Weight 214.00 lb BMI (Body Mass Index) 33.0 kg/m2 Results Test Acquired Date Facility Test Result H/L Range Note Comprehensive Chem Profile 04/10/2021 [facility] [place] Hole Digger Operator: Dr Elieser Zheng [place], [place] [address] [phone] Glucose 86 mg/dL 74 - 99 1 [...] 60 mL/min >60 2 Lipid Profile 04/10/2021 [facility] [place] Hole Digger Operator: Dr Elieser Zheng [place], [place] [id number] [phone] Cholesterol 192 mg/dL 131 - 200 Triglycerides 89 mg/dL 30 - 150 HDL Cholesterol 42 mg/dL 35 - 60 LDL (Calculated) 132 CALC 50 - 159 1 100-125 mg/dL PRE-DIABET ES/FASTING >126 mg/dL DIABETES/FASTING 2 CHRONIC KIDNEY DISEASE STAGI NG PER NKF STAGE I & II GFR >= 60 NORMAL TO MILDLY DECREASED STAGE III GFR 30-59 MODERATELY DECREASED STAGE IV GFR 15-29 SEVERELY DECREASED STAGE V GFR <15 VERY LITTLE GFR LEFT ESRD GFR <15 ON ADVERTISING SALES EXECUTIVE Procedures Date Code Description Status 04/11/2021 32745 Office/Outpatient Established Lo w MDM 20-29 Min Completed 10/02/2010 [id number] Colonoscopy Completed Medical Devices Description No Information Available Encounters Type Date Location Provider Dx Diagnosis Office Visit 04/11/2021 2:00p [facility] E78.5 Hyperlipidemia, unspecified I10 Essential (primary) [...] 10/02/2021 7:40 am - Lab Schedule at [facility] * 10/03/2021 8:00 am - Kiko Conteh M.D. at [facility] Functional Status Description No Information Available Mental Status Description No Information Available Referrals Refer to Reason for Referral Status Appt Date Gregg Dimas JR, MD CONSULT FOR UMBILICAL HERNIA AND SCREE REBEKA COLONOSCOPY Patient Notified 04/30/2021 [facility] General Surgery [address] [facility] [address] [place] [address] [phone]
--- OUTSIDE RECORDS SUMMARY | 2021-06-19 10:36 | CCD | Continuity of Care Document ---
Author Author Murtaza REYES M.D. Organization Unknown Address [address] [facility] [address] [place] [address] Phone [phone] Care Team Providers Care Furnace Repair Mechanic Name Role Phone Kiko Reyes MD [facility] [phone] Problems Description No Information Available Social History Type Date Description Comments Sex Unknown ETOH Use Rarely consumes alcohol Special occasions only Tobacco Use Start: Unknown End: Unknown Patient is a former smoker 1 PPD x 15 yrs, Quit at age 29 Allergies, Adverse Reactions, Alerts Description No Known Drug Allergies Medications Active Medications SIG Qnty Indications Ordering Provide r Date Zithromax 250mg Tablets 2 tablets today and then one daily x 4 6tabs Kiko Reyes M.D. 10/18 Prednisone 20mg Tablets 3 tabs x 3 days, then 2 tabs x3 days then 1 tab x 3 days then 1/2 tab x 4 days. 20tabs Kiko Reyes M.D. 11/08/2020 Cozaar 50mg Tablets 1 by mouth every day 30tabs Kiko Reyes M.D. 05/26/2019 Medications Administered in Office Medication SIG Qnty Indications Ordering Provider Date Immunization Adminstration,1 Vaccine/Tox oid Injection Kiko Reyes M.D. 019 Immunization Adminstration,1 Vaccine/Tox oid Injection Kiko Reyes M.D. 018 Immunizations CPT Code Status Date Vaccine Lot # [id number] Given 05/10/2019 Influenza Vaccin e Quadrivalent Preser/Antibiotic Free Im Use [id number] 95412 Given 05/09/2018 Influenza Virus Vaccine, Quadrivalent (Cciiv4), Derived From 5 Given 05/06/2017 Adacel- Tetanus Diphtheria P ertussis [id number] Vital Signs Date Vital Result Comment 04/11/2021 2:31pm BP Systolic 144 mmHg BP Diastolic 98 mmHg Heart Rate 76 /min Height 67.50 [...] H/L Range Note Comprehensive Chem Profile 04/10/2021 [facility] Air And Water Tester: [place] [address] [phone] Glucose 86 mg/dL 74 - 99 1 [...] 60 mL/min >60 2 Lipid Profile 04/10/2021 [facility] Air And Water Tester: [place] [address] [phone] Cholesterol 192 mg/dL 131 - 200 Triglycerides 89 mg/dL 30 - 150 HDL Cholesterol 42 mg/dL 35 - 60 LDL (Calculated) 132 CALC 50 - 159 CBC With Differential 11/12/2020 [facility] [address] [place] [address] [phone] White Blood Count 6.8 10 Normal 4.0-10.0 [...] 36.0-66.0 Lymph % 6.3 % Low 24.0-44.0 [place] % 6.0 % Normal 2.0-8.0 Eos % 0.1 % Normal 0.0-3.0 Baso % 0.1 % Normal 0.0-1.0 Immature Granulocyte % 0.9 % Normal 0-3.0 Nucleated Red Blood Cell % 0.0 % Normal 0-0 Neutrophils # 5.9 10 Normal 1.5-8.5 Lymph # 0.4 10 Low 1.5-5.0 [place] # 0.4 10 Normal 0.0-0.8 Eos # 0.0 10 Normal 0.0-0.5 Baso # 0.0 10 Normal 0.0-0.2 Comprehensive Metabolic Profil 11/12/[address] [address] [phone] Glucose, Fasting 108 mg/dL High 70-100 Blood [...] LITTLE GFR LEFT ESRD GFR <15 ON TWIST MAKER 3 Units are mL/min/1.73 m2 Chronic Kidney Disease Staging per NKF: Stage I & II GFR >=60 Normal to Mildly Decreased Stage III GFR 30-59 Moderately Decreased Stage IV GFR 15-29 Severely Decreased Stage V GFR <15 Very Little GFR Left ESRD GFR <15 on TWIST MAKER Procedures Date Code Description Status 10/02/2010 [id number] Colonoscopy Completed Medical Devices Description No Information Available Encounters Description No Information Available Assessments Description No Information Available Plan of Treatment 05/06/2017 - Kiko Reyes M.D.* Z00.00 Encntr for general adult medical exam w/o abnormal findings * R07.9 Chest pain, unspecified * Z13.220 Encounter for screening for lipoid disorders * G47.33 Obstructive sleep apnea (adult) (pediatric) * F43.20 Adjustment disorder, unspecified * Z12.5 Encounter for screening for malignant neoplasm of prostate * Z23 Encounter for immunization * Z13.89 Encounter for screening for other disorder * Functional Status Description No Information Available Mental Status Description No Information Available Referrals Description No Information Available
--- OUTSIDE RECORDS SUMMARY | 2021-06-19 10:36 | CCD | Continuity of Care Document ---
Author Author Murtaza COLEMAN PA Organization Unknown Address [address] [facility] [address] [place] [address] Phone [phone] Care Team Providers Care Representative Name Role Phone Kiko Conteh MD [facility] [phone] Problems Description No Information Available Social History [...] CPT Code Status Date Vaccine Lot # [id number] Given 05/10/2019 Influenza Vaccin e Quadrivalent Preser/Antibiotic Free Im Use [id number] Given 05/09/2018 Influenza Virus Vaccine, Quadrivalent (Cciiv4), Derived From 6 Given 05/06/2017 Adacel- Tetanus Diphtheria P ertussis [id number] Vital Signs Date Vital Result Comment 05/19/2021 [...] Date Facility Test Result H/L Range Note Basic Metabolic Panel 05/19/2021 [facility] Diesel Pile Hammer Operator: Dr Elieser Zheng [place], [place] [id number] [phone] Glucose 106 mg/dL High 74 - 99 1 BUN 21 mg/dL High 7 - 18 Creatinine 1.1 mg/dL 0.6 - 1.3 Sodium 144 mEq/L 136 - 145 Potassium 4.5 mEq/L 3.5 - 5.1 Chloride 109 mEq/L High 98 - 107 Carbon Dioxide 29 mEq/L 21 - 32 Calcium 9.9 mg/dL 8.5 - 10.1 GFR >= 60 mL/min >60 GFR >= 60 mL/min >60 2 Comprehensive Chem Profile 04/10/2021 [facility] Diesel Pile Hammer Operator: Dr Elieser [place]heng [place] [id number] [phone] Glucose 86 mg/dL 74 - 99 3 BUN 20 mg/dL High 7 - 18 [...] mL/min >60 GFR >= 60 mL/min >60 4 Lipid Profile 04/10/2021 [facility] Diesel Pile Hammer Operator: Dr Elieser [place]heng [place] [id number] [phone] Cholesterol 192 mg/dL 131 - 200 Triglycerides [...] LITTLE GFR LEFT ESRD GFR <15 ON CROCHET MACHINE OPERATOR 3 100-125 mg/dL PRE-DIABET ES/FASTING >126 mg/dL DIABETES/FASTING 4 CHRONIC KIDNEY DISEASE STAGI NG PER NKF STAGE I & II GFR >= 60 NORMAL TO MILDLY DECREASED STAGE III GFR 30-59 MODERATELY DECREASED STAGE IV GFR 15-29 SEVERELY DECREASED STAGE V GFR <15 VERY LITTLE GFR LEFT ESRD GFR <15 ON CROCHET MACHINE OPERATOR Procedures Date Code Description Status 04/11/2021 13877 Office/Outpatient Established Lo w MDM 20-29 Min Completed 10/02/2010 [id number] Colonoscopy Completed Medical Devices Description No Information Available Encounters Type Date Location Provider Dx Diagnosis Office Visit 04/11/2021 2:00p [facility] Kiko Conteh M.D. E78.5 Hyperlipidemia, unspecified I10 Essential [...] 10/02/2021 7:40 am - Lab Schedule at [facility] * 10/03/2021 8:00 am - Kiko Conteh M.D. at [facility] Functional Status Description No Information Available Mental Status Description No Information Available Referrals Refer to Dr Reason for Referral Status Appt Date Gregg Dimas JR, MD CONSULT FOR UMBILICAL HERNIA AND YELENAE REBEKA COLONOSCOPY Patient Notified 04/30/2021 [facility] General Surgery [address] [address] [phone]
--- OUTSIDE RECORDS SUMMARY | 2021-06-19 10:36 | CCD | Continuity of Care Document ---
Author Author Lab Schedule, Murtaza Jara Organization Unknown Address [address] [address] Phone Unavailable Care Team Providers Care Desizing Machine Back Tender Name Role Phone Kiko Conteh MD [facility] [phone] Problems Description No Information Available Social History [...] x 4 6tabs Kiko Conteh M.D. 10/18 Prednisone 20mg Tablets 3 tabs x 3 days, then 2 tabs x3 days then 1 tab x 3 days then 1/2 tab x 4 days. 20tabs Kiko Conteh M.D. 11/08/2020 Cozaar 50mg Tablets 1 by mouth every day 30tabs Kiko Conteh M.D. 05/26/2019 Medications Administered in Office Medication SIG Qnty Indications Ordering Provider Date Immunization Adminstration,1 Vaccine/Tox oid Injection Kiko Conteh M.D. 019 Immunization Adminstration,1 Vaccine/Tox oid Injection Kiko Conteh M.D. 018 Immunizations CPT Code Status Date Vaccine Lot # [id number] Given 05/10/2019 Influenza Vaccin e Quadrivalent Preser/Antibiotic Free Im Use [id number] Given 05/09/2018 Influenza Virus Vaccine, Quadrivalent (Cciiv4), Derived From 3 Given 05/06/2017 Adacel- Tetanus Diphtheria P ertussis [id number] Vital Signs Date Vital Result Comment 05/13/2020 8:07am BP Systolic 132 mmHg BP Diastolic 94 mmHg BP Systolic Recheck 130 mmHg BP Diastolic Recheck 82 mmHg Heart Rate 76 /min Height 67.50 inches 5'7.50" Weight 214.00 lb BMI (Body Mass Index) 33.0 kg/m2 08/29/2019 3:42pm BP Systolic 132 mmHg BP Diastolic 94 mmHg BP Systolic Recheck 132 mmHg BP Diastolic Recheck 85 mmHg Heart Rate 80 /min Height 67.50 inches 5'7.50" Weight 218.00 lb BMI (Body Mass Index) 33.6 kg/m2 Results Test Acquired Date Facility Test Result H/L Range Note CBC With Differential 11/12/[address] [id number] [phone] White Blood Count 6.8 10 Normal 4.0-10.0 [...] 36.0-66.0 Lymph % 6.3 % Low 24.0-44.0 [place] % 6.0 % Normal 2.0-8.0 Eos % 0.1 % Normal 0.0-3.0 Baso % 0.1 % Normal 0.0-1.0 Immature Granulocyte % 0.9 % Normal 0-3.0 Nucleated Red Blood Cell % 0.0 % Normal 0-0 Neutrophils # 5.9 10 Normal 1.5-8.5 Lymph # 0.4 10 Low 1.5-5.0 [place] # 0.4 10 Normal 0.0-0.8 Eos # 0.0 10 Normal 0.0-0.5 Baso # 0.0 10 Normal 0.0-0.2 Comprehensive Metabolic Profil 11/12/2020 [place] [address] [place] [address] [phone] Glucose, Fasting 108 mg/dL High 70-100 Blood Urea Nitrogen 25 mg/dL High 7-18 Creatinine For GFR 0.97 mg/dL Normal 0.70-1.30 Glomerular Filtration Rate > 60.0 Normal >49 1 Sodium Level 135 mEq/L Low 136-145 Potassium [...] Normal 3.2-5.2 Albumin/Globulin Ratio 1.1 Normal 1 Units are mL/min/1.73 m2 Chronic Kidney Disease Staging per NKF: Stage I & II GFR >=60 Normal to Mildly Decreased Stage III GFR 30-59 Moderately Decreased Stage IV GFR 15-29 Severely Decreased Stage V GFR <15 Very Little GFR Left ESRD GFR <15 on FLATWORK FINISHER Procedures Date Code Description Status 10/02/2010 [id number] Colonoscopy Completed Medical Devices Description No Information Available Encounters Description No Information Available Assessments Description No Information Available Plan of Treatment Future Appointment(s):* 04/10/2021 8:50 am - Lab Schedule at [facility] * 04/11/2021 2:00 pm - Kiko Conteh M.D. at [facility] 05/06/2017 - Kiko Conteh M.D.* Z00.00 Encntr for general adult medical [...]
--- OUTSIDE RECORDS SUMMARY | 2021-06-19 10:36 | CCD | Continuity of Care Document ---
Author Author Lab Schedule, Murtaza Jara Organization Unknown Address [address] [address] Phone Unavailable Care Team Providers Care Stamp Press Operator Name Role Phone Kiko Conteh MD [facility] [phone] Problems Description No Information Available Social History [...] CPT Code Status Date Vaccine Lot # [id number] Given 05/10/2019 Influenza Vaccin e Quadrivalent Preser/Antibiotic Free Im Use [id number] [id number] Given 05/09/2018 Influenza Virus Vaccine, Quadrivalent (Cciiv4), Derived From 5 Given 05/06/2017 Adacel- Tetanus Diphtheria P ertussis [id number] Vital Signs Date Vital Result Comment 05/13/2020 [...] H/L Range Note Comprehensive Chem Profile 04/10/2021 [facility] [place] Primer Powder Blender Wet: [place] [address] [phone] Glucose 86 mg/dL 74 - 99 1 [...] 60 mL/min >60 2 Lipid Profile 04/10/2021 [facility] Primer Powder Blender Wet: [place] [address] [phone] Cholesterol 192 mg/dL 131 - 200 Triglycerides 89 mg/dL 30 - 150 HDL Cholesterol 42 mg/dL 35 - 60 LDL (Calculated) 132 CALC 50 - 159 CBC With Differential 11/12/2020 [facility] [address] [place], [place] [address] [phone] White Blood Count 6.8 10 Normal 4.0-10.0 [...] 36.0-66.0 Lymph % 6.3 % Low 24.0-44.0 [place] % 6.0 % Normal 2.0-8.0 Eos % 0.1 % Normal 0.0-3.0 Baso % 0.1 % Normal 0.0-1.0 Immature Granulocyte % 0.9 % Normal 0-3.0 Nucleated Red Blood Cell % 0.0 % Normal 0-0 Neutrophils # 5.9 10 Normal 1.5-8.5 Lymph # 0.4 10 Low 1.5-5.0 [place] # 0.4 10 Normal 0.0-0.8 Eos # 0.0 10 Normal 0.0-0.5 Baso # 0.0 10 Normal 0.0-0.2 Comprehensive Metabolic Profil 11/12/[address] [address] [phone] Glucose, Fasting 108 mg/dL High 70-100 Blood [...] LITTLE GFR LEFT ESRD GFR <15 ON JUNK DEALER 3 Units are mL/min/1.73 m2 Chronic Kidney Disease Staging per NKF: Stage I & II GFR >=60 Normal to Mildly Decreased Stage III GFR 30-59 Moderately Decreased Stage IV GFR 15-29 Severely Decreased Stage V GFR <15 Very Little GFR Left ESRD GFR <15 on JUNK DEALER Procedures Date Code Description Status 10/02/2010 [id number] Colonoscopy Completed Medical Devices Description No Information Available Encounters Description No Information Available Assessments Description No Information Available Plan of Treatment Future Appointment(s):* 04/11/2021 2:00 pm - Kiko Conteh M.D. at [facility] 05/06/2017 - Kiko Conteh M.D.* Z00.00 Encntr [...]
--- OUTSIDE RECORDS SUMMARY | 2021-06-19 10:36 | CCD | Continuity of Care Document ---
Author Author Lab Schedule, Murtaza Jara Organization Unknown Address [address] [address] Phone Unavailable Care Team Providers Care Tile Molder Hand Name Role Phone Kiko Conteh MD [facility] [phone] Problems Description No Information Available Social History [...] CPT Code Status Date Vaccine Lot # [id number] Given 05/10/2019 Influenza Vaccin e Quadrivalent Preser/Antibiotic Free Im Use [id number] Given 05/09/2018 Influenza Virus Vaccine, Quadrivalent (Cciiv4), Derived From 7 Given 05/06/2017 Adacel- Tetanus Diphtheria P ertussis [id number] Vital Signs Date Vital Result Comment 05/13/2020 [...] H/L Range Note CBC With Differential 11/12/[address] [id number] [phone] White Blood Count 6.8 10 Normal 4.0-10.0 [...] 36.0-66.0 Lymph % 6.3 % Low 24.0-44.0 [place] % 6.0 % Normal 2.0-8.0 Eos % 0.1 % Normal 0.0-3.0 Baso % 0.1 % Normal 0.0-1.0 Immature Granulocyte % 0.9 % Normal 0-3.0 Nucleated Red Blood Cell % 0.0 % Normal 0-0 Neutrophils # 5.9 10 Normal 1.5-8.5 Lymph # 0.4 10 Low 1.5-5.0 [place] # 0.4 10 Normal 0.0-0.8 Eos # 0.0 10 Normal 0.0-0.5 Baso # 0.0 10 Normal 0.0-0.2 Comprehensive Metabolic Profil 11/12/2020 [place] [address] [place] [address] [phone] Glucose, Fasting 108 mg/dL High 70-100 Blood [...] Little GFR Left ESRD GFR <15 on SNAP ATTACHER Procedures Date Code Description Status 10/02/2010 [id number] Colonoscopy Completed Medical Devices Description No Information Available Encounters Description No Information Available Assessments Description No Information Available Plan of Treatment Future Appointment(s):* 04/11/2021 2:00 pm - Kiko Conteh M.D. at [facility] 05/06/2017 - Kiko Conteh M.D.* [...]
--- OUTSIDE RECORDS SUMMARY | 2021-06-19 10:36 | CCD | Continuity of Care Document ---
Author Organization Unknown Address Unknown Phone Unavailable Care Team Providers Care Alterations Sewer Name Role Phone Kiko Conteh MD [facility] [phone] Problems Description No Information Available Social History [...] CPT Code Status Date Vaccine Lot # [id number] Given 05/10/2019 Influenza Vaccin e Quadrivalent Preser/Antibiotic Free Im Use [id number] Given 05/09/2018 Influenza Virus Vaccine, Quadrivalent (Cciiv4), Derived From 5 Given 05/06/2017 Adacel- Tetanus Diphtheria P ertussis (Age64 & Under) [id number] Vital Signs Date Vital Result Comment 05/13/2020 [...] H/L Range Note CBC With Differential 11/12/[address] [address] [phone] White Blood Count 6.8 10 Normal 4.0-10.0 [...] 36.0-66.0 Lymph % 6.3 % Low 24.0-44.0 [place] % 6.0 % Normal 2.0-8.0 Eos % 0.1 % Normal 0.0-3.0 Baso % 0.1 % Normal 0.0-1.0 Immature Granulocyte % 0.9 % Normal 0-3.0 Nucleated Red Blood Cell % 0.0 % Normal 0-0 Neutrophils # 5.9 10 Normal 1.5-8.5 Lymph # 0.4 10 Low 1.5-5.0 [place] # 0.4 10 Normal 0.0-0.8 Eos # 0.0 10 Normal 0.0-0.5 Baso # 0.0 10 Normal 0.0-0.2 Comprehensive Metabolic Profil 11/12/[address] [address] [phone] Glucose, Fasting 108 mg/dL High 70-100 Blood [...] Little GFR Left ESRD GFR <15 on SLUMBER ROOM ATTENDANT Procedures Date Code Description Status 10/02/2010 [id number] Colonoscopy Completed Medical Devices Description No Information Available Encounters Description No Information Available Assessments Description No Information Available Plan of Treatment Future Appointment(s):* 07/15/2021 1:30 pm - Kiko Conteh M.D. at [facility] 05/06/2017 - Kiko Conteh M.D.* [...]
--- OUTSIDE RECORDS SUMMARY | 2021-06-19 10:36 | CCD | Continuity of Care Document ---
Author Author Murtaza DIMAS MD Organization Unknown Address [address] [address] Phone [phone] Care Team Providers Care Transitional Care Manager Name Role Phone [facility] Unavailable Kiko Conteh M.D. AUT[facility] [phone] Problems Active Problems Provider Date Essential hypertension Gregg Dimas JR, MD Onset: 04/30/20 21 Social History Type Date Description Comments Sex Unknown ETOH Use Denies alcohol use Recreational Drug Use Denies Drug Use Tobacco Use Start: Unknown End: Unknown Patient is a former smoker 1 1/2 ppd for 9 years quit age 35 Allergies and adverse reactions Description No Known Drug Allergies Medications Active Medications SIG Qnty Indications Ordering Provide r Date Losartan Potassium 50mg Tablets 1 by mouth every day Unknown Soha Aspirin 325mg Tablets 1 tab by mouth every day Unknown Immunizations Description No Information Available Vital Signs Date Vital Result Comment 04/30/2021 8:50am BP Systolic 149 mmHg BP Diastolic 90 mmHg Heart Rate 82 /min Body Temperature 99.0 F Height 68 inches 5'8" Weight 220.12 lb BMI (Body Mass Index) 33.5 kg/m2 [place] Body Weight 154 lb Weight 99.849 kg BSA (Body Surface Area) 2.13 m2 Results Description No Information Available Procedures Date Code Description Status 04/30/2021 62052 Office/Outpatient New Moderate M DM 45-59 Minutes Completed Medical Devices Description No Information Available Encounters Type Date Location Provider Dx Diagnosis Office Visit 04/30/2021 9:00a [facility] Gregg penaloza JR, MD Z12.11 Encounter for screening for malignant ne oplasm of colon K42.9 Umbilical hernia without obs truction or gangrene Assessments Date Code Description Provider 04/30/2021 Z12.11 Encounter for screening for rayna gnant neoplasm of colon Gregg Dimas JR, MD 04/30/2021 K42.9 Umbilical hernia without obstruc tion or gangrene Gregg Dimas JR, MD Plan of Treatment Future Appointment(s):* 07/29/2021 7:30 am - Gregg Dimas JR, MD at [facility] * 07/01/2021 10:30 am - ROBERT Salgado at [facility] * 06/19/2021 1:00 pm - Gregg Dimas JR, MD at [facility] 04/30/2021 - Gregg Dimas JR, MD* Z12.11 Encounter for screening for malignant neoplasm of colon* Comments:* The patient is here for recommendations concerning screening colonoscopy and fits the criteria for screening colonoscopy. And at this point the recommendation is to proceed with a repeat colonoscopy risks as well as benefits have been discussed with him at length those including but not limited to bleeding infection damage to bowel including perforation and possibly anesthetic complications. Patient understands as well that small lesions/polyps can be missed with increased fr equency and is much dependent on colonic prep. The patient agrees to proceed with colonoscopy as recommended. * K42.9 Umbilical hernia without obstruction or gangrene* Comments:* Patient has a symptomatic umbilical hernia and we've discussed multiple operative interventions for this hernia including open versus laparoscopic versus roboti c-assisted. We discussed the risks as well as benefits associated with each. Those including but not limited to infection bleeding damage to surrounding structures as well as recurrence of the hernias. Given that this hernia has become more symptomatic/enlarging in size over time I do recommend that the patient proceed with operative intervention for this. We've discussed open operative intervention and the patient would like to proceed with open umbilical hernia repair as soon as possible. Functional Status Description No Information Available Mental Status Description No Information Available Referrals Refer to Reason for Referral Status Appt Date Gregg Dimas JR, MD UMBILICAL HERNIA/ COLONOSCOPY Scheduled 04/30/[address] [place] [address] [phone]
--- OUTSIDE RECORDS SUMMARY | 2021-06-19 10:37 | CCD ---
Author Author [facility] Organization [facility] Address Unknown Phone Unavailable Care Team Providers Care Manufacturing Sales Representative Name Role Phone Amor Conteh MD Unavailable Unavailable Amor Conteh MD Unavailable Unavailable Amor Conteh MD Unavailable Unavailable Amor Conteh MD Unavailable Unavailable Amor Conteh MD Unavailable Unavailable Amor Conteh MD Unavailable Unavailable Amor Conteh MD Unavailable Unavailable Amor Conteh MD Unavailable Unavailable Amor Conteh MD Unavailable Unavailable Amor Conteh MD Unavailable Unavailable Amor Conteh MD Unavailable Unavailable Amor Conteh MD Unavailable Unavailable Amor Conteh MD Unavailable Unavailable Amor Conteh MD Unavailable Unavailable Amor Conteh MD Unavailable Unavailable Amor Conteh MD Unavailable Unavailable Amor Conteh MD Unavailable Unavailable Amor Conteh MD Unavailable Unavailable Amor Conteh MD Unavailable Unavailable Amor Conteh MD Unavailable Unavailable Amor Conteh MD Unavailable Unavailable Amor Conteh MD Unavailable Unavailable Amor Conteh MD Unavailable Unavailable Amor Conteh MD Unavailable Unavailable Amor Conteh MD Unavailable Unavailable Amor Conteh MD Unavailable Unavailable Amor Conteh MD Unavailable Unavailable Amor Conteh MD Unavailable Unavailable Amor Conteh MD Unavailable Unavailable Amor Conteh MD Unavailable Unavailable Amor Conteh MD Unavailable Unavailable Amor Conteh MD Unavailable Unavailable Amor Conteh MD Unavailable Unavailable Amor Conteh MD Unavailable Unavailable Amor Conteh MD Unavailable Unavailable Amor Conteh MD Unavailable Unavailable White, F Kiko MD Unavailable Unavailable White, F Kiko MD Unavailable Unavailable White, F Kiko MD Unavailable Unavailable White, F Kiko MD Unavailable Unavailable White, F Kiko MD Unavailable Unavailable White, F Kiko MD Unavailable Unavailable White, F Kiko MD Unavailable Unavailable White, F Kiko MD Unavailable Unavailable White, F Kiko MD Unavailable Unavailable White, F Kiko MD Unavailable Unavailable White, F Kiko MD Unavailable Unavailable White, F Kiko MD Unavailable Unavailable White, F Kiko MD Unavailable Unavailable White, F Kiko MD Unavailable Unavailable White, F Kiko MD Unavailable Unavailable White, F Kiko MD Unavailable Unavailable White, F Kiko MD Unavailable Unavailable White, F Kiko MD Unavailable Unavailable White, F Kiko MD Unavailable Unavailable White, F Kiko MD Unavailable Unavailable White, F Kiko MD Unavailable Unavailable White, F Kiko MD Unavailable Unavailable White, F Kiko MD Unavailable Unavailable White, F Kiko MD Unavailable Unavailable White, F Kiko MD Unavailable Unavailable White, F Kiko MD Unavailable Unavailable White, F Kiko MD Unavailable Unavailable White, F Kiko MD Unavailable Unavailable White, F Kiko MD Unavailable Unavailable White, F Kiko MD Unavailable Unavailable White, F Kiko MD Unavailable Unavailable White, F Kiko MD Unavailable Unavailable White, F Kiko MD Unavailable Unavailable White, F Kiko MD Unavailable Unavailable White, F Kiko MD Unavailable Unavailable White, F Kiko MD Unavailable Unavailable White, F Kiko MD Unavailable Unavailable White, F Kiko MD Unavailable Unavailable White, F Kiko MD Unavailable Unavailable White, F Kiko MD Unavailable Unavailable White, F Kiko MD Unavailable Unavailable RING, K MALCOLM PA Unavailable Unavailable RING, K MALCOLM PA Unavailable Unavailable RING, K MALCOLM PA Unavailable Unavailable RING, K MALCOLM PA Unavailable Unavailable RING, K MALCOLM PA Unavailable Unavailable RING, K MALCOLM PA Unavailable Unavailable RING, K MALCOLM PA Unavailable Unavailable RING, K MALCOLM PA Unavailable Unavailable RING, K MALCOLM PA Unavailable Unavailable RING, K MALCOLM PA Unavailable Unavailable RING, K MALCOLM PA Unavailable Unavailable RING, K MALCOLM PA Unavailable Unavailable RING, K MALCOLM PA Unavailable Unavailable RING, K MALCOLM PA Unavailable Unavailable RING, K MALCOLM PA Unavailable Unavailable RING, K MALCOLM PA Unavailable Unavailable RING, K MALCOLM PA Unavailable Unavailable RING, K MALCOLM PA Unavailable Unavailable RING, K MALCOLM PA Unavailable Unavailable RING, K MALCOLM PA Unavailable Unavailable RING, K MALCOLM PA Unavailable Unavailable RING, K MALCOLM PA Unavailable Unavailable Josephine Dimas JR, MD Unavailable Unavailable Josephine Dimas JR, MD Unavailable Unavailable Josephine Dimas JR, MD Unavailable Unavailable Josephine Dimas JR, MD Unavailable Unavailable Josephine Dimas JR, MD Unavailable Unavailable Josephine Dimas JR, MD Unavailable Unavailable Josephine Dimas JR, MD Unavailable Unavailable Josephine Dimas JR, MD Unavailable Unavailable Josephine Dimas JR, MD Unavailable Unavailable Josephine Dimas JR, MD Unavailable Unavailable Josephine Dimas JR, MD Unavailable Unavailable Josephine Dimas JR, MD Unavailable Unavailable Josephine Dimas JR, MD Unavailable Unavailable Josephine Dimas JR, MD Unavailable Unavailable Josephine Dimas JR, MD Unavailable Unavailable Josephine Dimas JR, MD Unavailable Unavailable Josephine Dimas JR, MD Unavailable Unavailable Josephine Dimas JR, MD Unavailable Unavailable Josephine Dimas JR, MD Unavailable Unavailable Josephine Dimas JR, MD Unavailable Unavailable Josephine Dimas JR, MD Unavailable Unavailable Josephine Dimas JR, MD Unavailable Unavailable Josephine Dimas JR, MD Unavailable Unavailable Josephine Dimas JR, MD Unavailable Unavailable Josephine Dimas JR, MD Unavailable Unavailable Josephine Dimas JR, MD Unavailable Unavailable Josephine Dimas JR, MD Unavailable Unavailable Josephine Dimas JR, MD Unavailable Unavailable Josephine Dimas JR, MD Unavailable Unavailable Josephine Dimas JR, MD Unavailable Unavailable Josephine Dimas JR, MD Unavailable Unavailable Josephine Dimas JR, MD Unavailable Unavailable Josephine Dimas JR, MD Unavailable Unavailable Josephine Dimas JR, MD Unavailable Unavailable Josephine Dimas JR, MD Unavailable Unavailable Josephine Dimas JR, MD Unavailable Unavailable Josephine Dimas JR, MD Unavailable Unavailable Josephine Dimas JR, MD Unavailable Unavailable Josephine Dimas JR, MD Unavailable Unavailable Josephine Dimas JR, MD Unavailable Unavailable Josephine Dimas JR, MD Unavailable Unavailable Josephine Dimas JR, MD Unavailable Unavailable Josephine Dimas JR, MD Unavailable Unavailable Josephine Dimas JR, MD Unavailable Unavailable Josephine Dimas JR, MD Unavailable Unavailable Josephine Dimas JR, MD Unavailable Unavailable Josephine Dimas JR, MD Unavailable Unavailable Josephine Dimas JR, MD Unavailable Unavailable Josephine Dimas JR, MD Unavailable Unavailable Josephine Dimas JR, MD Unavailable Unavailable Josephine Dimas JR, MD Unavailable Unavailable Josephine Dimas JR, MD Unavailable Unavailable Josephine Dimas JR, MD Unavailable Unavailable Josephine Dimas JR, MD Unavailable Unavailable Josephine Dimas JR, MD Unavailable Unavailable Re-disclosure Warning The records that you are about to access may contain information from federally-assisted alcohol or drug abuse programs. If such information is present, then the following federally mandated warning applies: This information has been disclosed to you from records protected by federal confidentiality rules (42 CFR part 2). The federal rules prohibit you from making any further disclosure of this information unless further disclosure is expressly permitted by the written consent of the person to whom it pertains or as otherwise permitted by 42 CFR part 2. A general authorization for the release of medical or other information is NOT sufficient for this purpose. The Federal rules restrict any use of the information to criminally investigate or prosecute any alcohol or drug abuse patient.The records that you are about to access may contain highly sensitive health information, the redisclosure of which is protected by Article 27-F of the [facility] Public Health law. If you continue you may have access to information: Regarding HIV / AIDS; Provided by facilities licensed or operated by the [facility] Office of Mental Health; or Provided by the [facility] Office for People With Developmental Disabilities. If such information is present, then the following [facility] mandated warning applies: This information has been disclosed to you from confidential records which are protected by state law. State law prohibits you from making any further disclosure of this information without the specific written consent of the person to whom it pertains, or as otherwise permitted by law. Any unauthorized further disclosure in violation of state law may result in a fine or prison sentence or both. A general authorization for the release of medical or other information is NOT sufficient authorization for further disc losure. Family History Family Member Name Family Member Gender Family Member Status Date o f Status Description Data Source(s) Unknown Unknown Problem [facility] ([facility]) Unknown Unknown Problem [facility] ([facility]) Unknown Female Problem [facility] ([facility]) Unknown Female Problem [facility] ([facility]) Encounters Encounter Providers Location Date Indications Data Source(s ) Outpatient Attender: Gregg Pro/She/Ameya/Rein dl 04/30/2021 09:00:00 AM EDT [facility] ([facility] ) Outpatient Attender: Kiko Elizalde 04/11 02:00:00 PM EDT [facility] ([facility] ) Outpatient Attender: MALCOLM Rayo 11/04/2020 08:25:00 AM EDT [facility] ([facility]) Outpatient Attender: Kiko Elizalde 05/13 08:00:00 AM EDT [facility] ([facility] ) Medications Medication Brand Name Start Date Product Form Dose Route Admi nistrative Instructions Pharmacy Instructions Status Indications Reaction Description Data Source(s) SUPREP BOWEL PREP KIT 17.5-3.13-1.6 gram SODIUM, POTASSIUM,M AG SULFATES 06/05/2021 12:00:00 AM EST recon soln 354 TAKE PER DOCTOR'S BOWEL PREP INSTRUCTIONS TAKE PER DOCTOR'S BOWEL PREP INSTRUCTIONS SOLD: 06/13/2021 [facility] 50 mg 04/12/2021 12:00:00 AM EDT tablet 90 TAKE ONE TABLET BY MOUTH EVERY DAY TAKE ONE TABLET BY MOUTH EVERY DAY SOLD: 04/19/2021 [facility] 20 mg 11/20/2020 12:00:00 AM EDT tablet 20 TAKE 3 TABLETS BY MOUTH DAILY FOR 3 DAYS THEN 2 TABLETS DAILY FOR 3 DAYS THEN 1 TABLET DAILY FOR 3 DAYS THEN 1/2 TABLET DAILY FOR 4 DAYS TAKE 3 TABLETS BY MOUTH DAILY FOR 3 DAYS THEN 2 TABLETS DAILY FOR 3 DAYS THEN 1 TABLET DAILY FOR 3 DAYS THEN 1/2 TABLET DAILY FOR 4 DAYS SOLD: 11/20/2020 [facility] 250 mg 11/20/2020 12:00:00 AM EDT tablet 6 TAKE 2 TABLETS BY MOUTH TODAY AND THEN 1 TABLET ONCE DAILY FOR 4 DAYS TAKE 2 TABLETS BY MOUTH TODAY AND THEN 1 TABLET ONCE DAILY FOR 4 DAYS SOLD: 11/20/2020 [facility] Prednisone 20 MG Oral Tablet Prednisone 11/08/2020 12:00:00 AM EDT completed [facility] ([facility]) Azithromycin 250 MG Oral Tablet [Zithromax] Zithromax 11/08/2020 12:00:00 AM EDT completed [facility] ([facility]) 20 mg 11/08/2020 12:00:00 AM EDT tablet 17 TAKE 3TABS.BY MOUTH ONCE DAILY FOR 2 DAYS;2/DAY X3DAYS;1 A DAY X3DAYS;THEN 1/2 DAILY X4DAYS TAKE 3TABS.BY MOUTH ONCE DAILY FOR 2 DAYS;2/DAY X3DAYS;1 A DAY X3DAYS;THEN 1/2 DAILY X4DAYS SOLD: 11/08/2020 [facility] 250 mg 11/08/2020 12:00:00 AM EDT tablet 6 TAKE TWO TABLETS BY MOUTH AT ONCE ON THE FIRST DAY THEN TAKE ONE DAILY THEREAFTER DAYS 2-5 TAKE TWO TABLETS BY MOUTH AT ONCE ON THE FIRST DAY THEN TAKE ONE DAILY THEREAFTER DAYS 2-5 SOLD: 11/08/2020 [facility] 50 mg 07/25/2020 12:00:00 AM EST tablet 30 TAKE ONE TABLET BY MOUTH EVERY DAY TAKE ONE TABLET BY MOUTH EVERY DAY SOLD: 09/17/2020 [facility] 50 mg 07/25/2020 12:00:00 AM EST tablet 30 TAKE ONE TABLET BY MOUTH EVERY DAY TAKE ONE TABLET BY MOUTH EVERY DAY SOLD: 07/28/2020 [facility] 500 mg 05/28/2020 12:00:00 AM EST capsule 21 TAKE ONE CAPSULE BY MOUTH EVERY 8 HOURS TAKE ONE CAPSULE BY MOUTH EVERY 8 HOURS SOLD: 05/28/2020 [facility] 50 mg 02/21/2020 12:00:00 AM EDT tablet 30 TAKE ONE TABLET BY MOUTH EVERY DAY TAKE ONE TABLET BY MOUTH EVERY DAY SOLD: 06/26/2020 [facility] Insurance Providers Payer name Policy type / Coverage type Policy ID Covered constitution party ID Covered constitution party's relationship to weber Policy Weber Plan Information [employer] (pr) Commercial [id number] Self Umr (New [employer]) Commercial [id number] Family Dependent [id number] UMR F [id number] SPOUSE [id number] UMR F [id number] SPOUSE [id number] UMR O [id number] S [id number] [employer]/Umr (Old) Medigap Part B [id number] Family Dependent [id number] [employer] (Old) Medigap Part B [id number] Family Dependent [id number] Umr/Uhc/[employer] Health Maintenance Organization (HMO) [id number] Family Dependent [id number] [employer] Ppo Commercial [id number] Family Dependent [id number] [employer] Ppo Commercial [id number] Family Dependent 910 UMR [facility] [id number] WI2 [id number] [employer] PPO O [id number] P [id number] R [facility] [id number] WI2 [id number] [employer] [id number] WI2 [id number] UMR F [id number] SPOUSE [id number] Problems, Conditions, and Diagnoses Code Display Name Description Problem Type Effective Dates Data Source(s) [id number] Essential hypertension Essential hypertension Problem 04/30/2021 12:00:00 AM EDT [facility] ([facility]) Surgeries/Procedures Procedure Description Date Indications Data Source(s) OFFICE OUTPATIENT NEW 45 MINUTES 04/30/2021 12:00:00 A M EDT [facility] ([facility]) OFFICE OUTPATIENT VISIT 15 MINUTES 04/11/2021 12:00:00 AM EDT [facility] ([facility]) Results ID Date Data Source [id number] 06/14/2021 11:25:00 AM EST [facility] Name Value Range Interpretation Code Description Data Nona rce(s) Supporting Document(s) SARS-CoV-2 (COVID-19) RNA [Presence] in Respiratory specimen by ROSI with probe detection Not [facility] by [facility] and reported by [employer] [facility]. ID Date Data Source [id number] 05/19/2021 08:48:00 AM EDT [facility] ([facility]) Name Value Range Interpretation Code Description Data Nona rce(s) Supporting Document(s) Glucose [Mass/volume] in Serum or Plasma 106 mg/dL 74-99 [facility] ([facility]) 100-125 mg/dL PRE-DIABETES/FASTING >126 mg/dL DIABETES/FASTING Urea nitrogen [Mass/volume] in Serum or Plasma 21 mg/dL 7-18 [facility] ([facility]) Creatinine 1.1 mg/dL 0.6-1.3 [facility] Chloride [Moles/volume] in Serum or Plasma 109 meq/L 98-107 [facility] ([facility]) Potassium [Moles/volume] in Serum or Plasma 4.5 meq/L 3.5-5.1 [facility] ([facility]) Sodium [Moles/volume] in Serum or Plasma 144 meq/L 136-145 [facility] ([facility]) Glomerular filtration rate/1.73 sq M pre dicted among blacks [Volume Rate/Area] in Serum or Plasma by Creatinine-based formula (MDRD) Laboratory test result [facility] <content>CHRONIC KIDNEY DISEASE STAGING PER NKF</content>
<content></content>
<content>STAGE I & II GFR >= 60 NORMAL TO MILDLY DECREASED</content>
<content>STAGE III GFR 30-59 MODERATELY DECREASED</content>
<content>STAGE IV GFR 15-29 SEVERELY DECREASED</content>
<content>STAGE V GFR <15 VERY LITTLE GFR LEFT</content>
<content>ESRD GFR <15 ON PRODUCT PROMOTER RETAIL PET</content>
<content></content> Glomerular filtration rate/1.73 sq M pre dicted among non-blacks [Volume Rate/Area] in Serum or Plasma by Creatinine-based formula (MDRD) Laboratory test result [facility] Carbon dioxide, total [Moles/volume] in Serum or Plasma 29 meq/L 21 -32 [facility] ([facility]) Calcium [Mass/volume] in Serum or Plasma 9.9 mg/dL 8.5-10.1 [facility] ([facility]) ID Date Data Source [id number] 04/10/2021 08:40:00 AM EDT [facility] ([facility]) Name Value Range Interpretation Code Description Data Nona rce(s) Supporting Document(s) Cholesterol [Mass/volume] in Serum or Plasma 192 mg/dL 131-200 [facility] ([facility]) Triglyceride [Mass/volume] in Serum or Plasma 89 mg/dL 30-150 [facility] ([facility]) Cholesterol in HDL [Mass/volume] in Serum or Plasma 42 mg/dL 35-60 [facility] ([facility]) Cholesterol in LDL [Mass/volume] in Serum or Plasma by calcu lation 132 CALC 50-159 [facility] ID Date Data Source [id number] 04/10/2021 08:40:00 AM EDT [facility] Name Value Range Interpretation Code Description Data Nona rce(s) Supporting Document(s) Glucose [Mass/volume] in Serum or Plasma 86 mg/dL 74-99 [facility] ([facility]) 100-125 mg/dL PRE-DIABETES/FASTING >126 mg/dL DIABETES/FASTING Creatinine 1.1 mg/dL 0.6-1.3 [facility] Urea nitrogen [Mass/volume] in Serum or Plasma 20 mg/dL 7-18 [facility] ([facility]) Potassium [Moles/volume] in Serum or Plasma 4.4 meq/L 3.5-5.1 [facility] ([facility]) Chloride [Moles/volume] in Serum or Plasma 106 meq/L 98-107 [facility] ([facility]) Sodium [Moles/volume] in Serum or Plasma 141 meq/L 136-145 [facility] ([facility]) Calcium [Mass/volume] in Serum or Plasma 9.4 mg/dL 8.5-10.1 [facility] ([facility]) Carbon dioxide, total [Moles/volume] in Serum or Plasma 30 meq/L 21 -32 [facility] ([facility]) Total Bilirubin 1.1 mg/dL 0.2-1.0 [facility] ([facility]) Alkaline phosphatase isoenzyme [Units/volume] in Serum or Pl asma 83 mg/dL 46-116 [facility] ([facility]) Aspartate aminotransferase [Enzymatic activity/volume] in Serum or Plasma 16 U/L 15-37 [facility] ([facility] ) Albumin [Mass/volume] in Serum or Plasma 4.3 g/dL 3.4-5.0 [facility] ([facility]) Alanine aminotransferase [Enzymatic activity/volume] in Seru m or Plasma 35 U/L 12-78 [facility] ([facility]) Proteinase 3 Ab [Units/volume] in Serum 6.8 g/dL 6.4-8.2 [facility] ([facility]) A/G Ratio 1.72 CALC 1.00-1.90 [facility] Glomerular filtration rate/1.73 sq M pre dicted among non-blacks [Volume Rate/Area] in Serum or Plasma by Creatinine-based formula (MDRD) Laboratory test result [facility] Glomerular filtration rate/1.73 sq M pre dicted among blacks [Volume Rate/Area] in Serum or Plasma by Creatinine-based formula (MDRD) Laboratory test result [facility] <content>CHRONIC KIDNEY DISEASE STAGING PER NKF</content>
<content></content>
<content>STAGE I & II GFR >= 60 NORMAL TO MILDLY DECREASED</content>
<content>STAGE III GFR 30-59 MODERATELY DECREASED</content>
<content>STAGE IV GFR 15-29 SEVERELY DECREASED</content>
<content>STAGE V GFR <15 VERY LITTLE GFR LEFT</content>
<content>ESRD GFR <15 ON PRODUCT PROMOTER RETAIL PET</content>
<content></content> ID Date Data Source [id number] 11/12/2020 08:26:00 PM EDT [facility] ([facility]) Name Value Range Interpretation Code Description Data Nona rce(s) Supporting Document(s) Blood Urea Nitrogen 25 mg/dL 7-18 [facility] ([facility]) Glucose, Fasting 108 mg/dL 70-100 [facility] ([facility]) Glomerular Filtration Rate Laboratory test result [facility] ([facility]) <content>Units are mL/min/1.73 m2</content>
<content></content>
<content>Chronic Kidney Disease Staging per NKF:</content>
<content></content>
<content>Stage I & II GFR >=60 Normal to Mildly Decreased</content>
<content>Stage III GFR 30-59 Moderately Decreased</content>
<content>Stage IV GFR 15-29 Severely Decreased</content>
<content>Stage V GFR <15 Very Little GFR Left</content>
<content>ESRD GFR <15 on PRODUCT PROMOTER RETAIL PET</content>
<content></content> Sodium Level 135 meq/L 136-145 [facility] ([facility]) Creatinine For GFR 0.97 mg/dL 0.70-1.30 [facility] ([facility]) Chloride Level 102 meq/L 98-107 [facility] ([facility]) Carbon Dioxide Level 25 meq/L 21-32 [facility] ([facility]) Potassium Serum 3.4 meq/L 3.5-5.1 [facility] ([facility]) Ast/Sgot 23 U/L 7-37 [facility] Anion Gap 8 meq/L 8-16 [facility]) Calcium Level 8.1 mg/dL 8.8-10.2 [facility] ([facility]) Alt/SGPT 26 U/L 12-78 [facility] Alkaline Phosphatase 58 U/L 45-117 [facility] ([facility]) Bilirubin,Total 0.9 mg/dL 0.2-1.0 [facility] ([facility]) Albumin 3.4 GM/DL 3.2-5.2 [facility]) Total Protein 6.6 GM/DL 6.4-8.2 [facility] ([facility]) Albumin/Globulin Ratio 1.1 [facility] ([facility]) ID Date Data Source [id number] 11/12/2020 08:26:00 PM EDT [facility] ([facility]) Name Value Range Interpretation Code Description Data Nona rce(s) Supporting Document(s) White Blood Count 6.8 10 4.0-10.0 [facility] ([facility]) Red Blood Count 5.03 10 4.30-6.10 [facility] ([facility]) Hemoglobin 15.0 g/dL 13.5-17.5 [facility] Hematocrit 42.3 % 42.0-52.0 [facility]) Mean Corpuscular Hemoglobin 29.8 pg 27.0-33.0 ME DENT ([facility]) Mean Corpuscular Volume 84.1 fl 80.0-96.0 [facility] ([facility]) Red Cell Distribution Width 11.3 % 11.5-14.5 ME [facility] ([facility]) Platelet Count, Automated 165 10 150-450 MEDE NT ([facility]) Mean Corpuscular HGB Conc 35.5 g/dL 32.0-36.5 [facility] NT ([facility]) Lymph % 6.3 % 24.0-44.0 [facility]) Hodgeman % 6.0 % 2.0-8.0 [facility]) Neutrophils % 86.6 % 36.0-66.0 [facility] ([facility]) Baso % 0.1 % 0.0-1.0 [facility]) Eos % 0.1 % 0.0-3.0 [facility]) Immature Granulocyte % 0.9 % 0-3.0 [facility] ([facility]) Neutrophils # 5.9 10 1.5-8.5 [facility] ([facility]) Nucleated Red Blood Cell % 0.0 % 0-0 MED ENT ([facility]) Lymph # 0.4 10 1.5-5.0 [facility] Hodgeman # 0.4 10 0.0-0.8 [facility]) Eos # 0.0 10 0.0-0.5 [facility]) Baso # 0.0 10 0.0-0.2 [facility]) ID Date Data Source [id number] 11/04/2020 12:00:00 AM EDT [facility] Name Value Range Interpretation Code Description Data Nona rce(s) Supporting Document(s) SARS-CoV2 Rapid Antigen Positive [facility] This lab was reported by [facility]. ID Date Data Source [id number] 05/10/2020 07:40:00 AM EDT [facility] Name Value Range Interpretation Code Description Data Nona rce(s) Supporting Document(s) Prostate specific Ag [Mass/volume] in Serum or Plasma 0.62 ng/mL [facility] ([facility]) This assay was performed on the Siemens Dimension EXL using the B- Galactosidase/CPRG methodology and should not be compared interchangeably with other methods. The PSA should not be used alone as a screening test for the presence or absence of malignant disease. ID Date Data Source [id number] 05/10/2020 07:40:00 AM EDT [facility] Name Value Range Interpretation Code Description Data Nona rce(s) Supporting Document(s) Cholesterol [Mass/volume] in Serum or Plasma 184 mg/dL 131-200 [facility] ([facility]) Triglyceride [Mass/volume] in Serum or Plasma 52 mg/dL 30-150 [facility] ([facility]) Cholesterol in LDL [Mass/volume] in Serum or Plasma by calcu lation 129 CALC 50-159 [facility] ([facility]) Cholesterol in HDL [Mass/volume] in Serum or Plasma 45 mg/dL 35-60 [facility] ([facility]) ID Date Data Source [id number] 05/10/2020 07:40:00 AM EDT [facility] ([facility]) Name Value Range Interpretation Code Description Data Nona rce(s) Supporting Document(s) Urea nitrogen [Mass/volume] in Serum or Plasma 24 mg/dL 7-18 [facility] ([facility]) Glucose [Mass/volume] in Serum or Plasma 93 mg/dL 74-99 [facility] ([facility]) 100-125 mg/dL PRE-DIABETES/FASTING >126 mg/dL DIABETES/FASTING Sodium [Moles/volume] in Serum or Plasma 143 meq/L 136-145 [facility] ([facility]) Creatinine 1.2 mg/dL 0.6-1.3 [facility] ([facility] Chloride [Moles/volume] in Serum or Plasma 107 meq/L 98-107 [facility] ([facility]) Carbon dioxide, total [Moles/volume] in Serum or Plasma 29 meq/L 21 -32 [facility] ([facility]) Potassium [Moles/volume] in Serum or Plasma 4.6 meq/L 3.5-5.1 [facility] ([facility]) Alkaline phosphatase isoenzyme [Units/volume] in Serum or Pl asma 80 mg/dL 46-116 [facility] ([facility]) Total Bilirubin 0.8 mg/dL 0.2-1.0 [facility] ([facility]) Calcium [Mass/volume] in Serum or Plasma 9.1 mg/dL 8.5-10.1 [facility] ([facility]) Aspartate aminotransferase [Enzymatic activity/volume] in Serum or Plasma 16 U/L 15-37 [facility] ([facility] ) Alanine aminotransferase [Enzymatic activity/volume] in Seru m or Plasma 29 U/L 12-78 [facility] ([facility]) Albumin [Mass/volume] in Serum or Plasma 4.3 g/dL 3.4-5.0 [facility] ([facility]) A/G Ratio 1.72 CALC 1.00-1.90 [facility] ([facility]) Proteinase 3 Ab [Units/volume] in Serum 6.8 g/dL 6.4-8.2 [facility] ([facility]) Glomerular filtration rate/1.73 sq M pre dicted among blacks [Volume Rate/Area] in Serum or Plasma by Creatinine-based formula (MDRD) Laboratory test [facility]) <content>CHRONIC KIDNEY DISEASE STAGING PER NKF</content>
<content></content>
<content>STAGE I & II GFR >= 60 NORMAL TO MILDLY DECREASED</content>
<content>STAGE III GFR 30-59 MODERATELY DECREASED</content>
<content>STAGE IV GFR 15-29 SEVERELY DECREASED</content>
<content>STAGE V GFR <15 VERY LITTLE GFR LEFT</content>
<content>ESRD GFR <15 ON PRODUCT PROMOTER RETAIL PET</content>
<content></content> Glomerular filtration rate/1.73 sq M pre dicted among non-blacks [Volume Rate/Area] in Serum or Plasma by Creatinine-based formula (MDRD) Laboratory test result [facility] ([facility] ) Procedure Social History Code Duration Value Status Description Data Source(s ) Smoking 11/04/2020 12:00:00 AM EDT Patient is a former smoker completed Patient is a [facility] Vital Signs ID Date Data Source UNK Name Value Range Interpretation Code Description Data Source(s) Systolic blood pressure 130 mm[Hg] 130 [facility]Hg] [facility] Diastolic blood pressure 80 mm[Hg] 80 mm[Hg] [facility]) Heart rate 85 /min 85 /min [facility] ([facility]) Body height 67.50 [in_i] 67.50 [in_i] [facility] 5'7.50" Body weight 218.00 [lb_av] 218.00 [lb_av] RAUL Negrete ([facility]) Body mass index (BMI) [Ratio] 33.6 kg/m2 33.6 k g/m2 [facility] Systolic blood pressure 149 mm[Hg] 149 mm[Hg] [facility] [place] body weight 154 [lb_av] 154 [lb_av] RAUL Negrete ([facility]) Body weight 99.849 kg 99.849 kg [facility] ([facility]) Diastolic blood pressure 90 mm[Hg] 90 mm[Hg] [facility] ([facility]) Heart rate 82 /min 82 /min [facility] ([facility]) Body temperature 99.0 [degF] 99.0 [degF] [facility] ([facility]) Body height 68 [in_i] 68 [in_i] [facility] ([facility]) 5'8" Body weight 220.12 [lb_av] 220.12 [lb_av] [facility] T ([facility]) Body mass index (BMI) [Ratio] 33.5 kg/m2 33.5 k g/m2 [facility] ([facility]) Body surface area Derived from formula 2.13 m2 2.13 m2 [facility] ([facility]) Systolic blood pressure 144 mm[Hg] 144 mm[Hg] M [facility] ([facility]) Diastolic blood pressure 98 mm[Hg] 98 mm[Hg] [facility] ([facility]) Systolic blood pressure 145 mm[Hg] 145 mm[Hg] [facility] Diastolic blood pressure 90 mm[Hg] 90 mm[Hg] [facility] ([facility]) Heart rate 76 /min 76 /min [facility] Body height 67.50 [in_i] 67.50 [in_i] [facility] ([facility]) 5'7.50" Body weight 214.00 [lb_av] 214.00 [lb_av] [facility] T ([facility]) Body mass index (BMI) [Ratio] 33.0 kg/m2 33.0 k g/m2 [facility] ([facility]) Systolic blood pressure 148 mm[Hg] 148 mm[Hg] M [facility] ([facility], [facility]) Diastolic blood pressure 92 mm[Hg] 92 mm[Hg] [facility] ([facility], [facility]) Heart rate 86 /min 86 /min [facility] ([facility], [facility]) Respiratory rate 16 /min 16 /min [facility] ( [facility]) Oxygen saturation in Arterial blood by Pulse oximetry 96 % 96 % [facility] ([facility]) Body temperature 97.6 [degF] 97.6 [degF] [facility] ([facility]) Body weight 215.00 [lb_av] 215.00 [lb_av] [facility] T ([facility]) Body height 68 [in_i] 68 [in_i] [facility] ([facility]) 5'8" Body mass index (BMI) [Ratio] 32.7 kg/m2 32.7 k g/m2 [facility] ([facility]) Systolic blood pressure 132 mm[Hg] 132 mm[Hg] [facility] ([facility]) Heart rate 76 /min 76 /min [facility] Body height 67.50 [in_i] 67.50 [in_i] [facility] 5'7.50" Body weight 214.00 [lb_av] 214.00 [lb_av] [facility] T ([facility]) Body mass index (BMI) [Ratio] 33.0 kg/m2 33.0 k g/m2 [facility] ([facility]) Diastolic blood pressure 94 mm[Hg] 94 mm[Hg] [facility] ([facility]) Systolic blood pressure 130 mm[Hg] 130 mm[Hg] [facility] Diastolic blood pressure 82 mm[Hg] 82 mm[Hg] [facility] ([facility])
--- NOTE | 2021-06-19 12:11 | ROOR ---
Patient Name: Murtaza Queen Procedure Date: 06/19/2021 11:48 AM Date of : 1960 Age: 60 Room: [facility] Gender: Male Note Status: Finalized Procedure: Colonoscopy Indications: Screening for colorectal malignant neoplasm Providers: Gregg Dimas Jr, MD Referring MD: Kiko Conteh MD Requesting Provider: Medicines: Propofol per Anesthesia Complications: No immediate complications. Procedure: Pre-Anesthesia Assessment: - Prior to the procedure, a History and Physical was performed, and patient medications and allergies were reviewed. The patient is competent. The risks and benefits of the procedure and the sedation options and risks were discussed with the patient. All questions were answered and informed consent was obtained. Patient identification and proposed procedure were verified by the physician and the nurse in the pre-procedure area and in the procedure room. Mental Status Examination: alert and oriented. Airway Examination: normal oropharyngeal airway and neck mobility. Respiratory Examination: clear to auscultation. CV Examination: normal. ASA Grade Assessment: II - A patient with mild systemic disease. After reviewing the risks and benefits, the patient was deemed in satisfactory condition to undergo the procedure. The anesthesia plan was to use moderate sedation / analgesia (conscious sedation). Immediately prior to administration of medications, the patient was re-assessed for adequacy to receive sedatives. The heart rate, respiratory rate, oxygen saturations, blood pressure, adequacy of pulmonary ventilation, and response to care were monitored throughout the procedure. The physical status of the patient was re-assessed after the procedure. The Colonoscope was introduced through the anus and advanced to the cecum, identified by appendiceal orifice and ileocecal valve. The colonoscopy was performed without difficulty. The patient tolerated the procedure well. The quality of the bowel preparation was adequate. Findings: Two polyps were found in the descending colon and ascending colon. The polyps were small in size. These polyps were removed with a cold snare. Resection and retrieval were complete. The rectum, recto-sigmoid colon, sigmoid colon, cecum, appendiceal orifice and ileocecal valve appeared normal. Impression: - Two small polyps in the descending colon and in the ascending colon, removed with a cold snare. Resected and retrieved. - The rectum, recto-sigmoid colon, sigmoid colon, cecum, appendiceal orifice and ileocecal valve are normal. Recommendation: - Discharge patient to home (ambulatory). - Repeat colonoscopy in 5-10 years for surveillance based on pathology results. Procedure Code(s): --- Professional --- 79004, Colonoscopy, flexible; with removal of tumor(s), polyp(s), or other lesion(s) by snare technique Diagnosis Code(s): --- Professional --- Z12.11, Encounter for screening for malignant neoplasm of colon K63.5, Polyp of colon CPT copyright 2019 [employer]. All rights reserved. The codes documented in this report are preliminary and upon water service dispatcher review may be revised to meet current compliance requirements. Gregg Dimas MD Gregg Dimas Jr, MD 06/19/2021 12:10:57 PM Electronically signed by Gregg Dimas Jr, MD Number of Addenda: 0 Note Initiated On: 06/19/2021 11:48 AM Estimated Blood Loss: Estimated blood loss: none.
[2021-06-19 12:30] VITALS: BP 152/98
== END 2021-06-19 12:36 | disposition home or self-care (01) ==
LOC: M OPP 10:28
PROVIDERS: ATTEND Surgery
DX: Z12.11 Encounter for screening for malignant neoplasm of colon (principal); D12.6 Benign neoplasm of colon, unspecified; G47.30 Sleep apnea, unspecified; Z79.82 Long term (current) use of aspirin; Z79.899 Other long term (current) drug therapy; Z87.891 Personal history of nicotine dependence

== ENCOUNTER 2021-07-29 07:25 | Day surgery (SDC) | payer OTHER ==
[~2021-07-29] VITALS: Ht 172.7 cm; Wt 100.6 kg
[~2021-07-29 07:25] MED LIST changes: -LIDOCAINE 2% 100MG/5ML SDV (FOR ANES.) As Ordered ONE; +LOSA50TA28 PO; -LOSA50TA88 PO; +LR 1,000 ML IV ONE; -NS 1,000 ML IV ONE; +ceFAZolin SOD 2 GM in IV 1 EA IV ONE; -propofoL 200 MG/20 ML VIAL As Ordered ONE
[2021-07-29] MEDS ORDERED: ROCURONIUM BROMIDE 50 MG/5 ML VIAL As Ordered ONE (08:09)
[2021-07-29] MEDS ORDERED: propofoL 200 MG/20 ML VIAL As Ordered ONE (08:09)
[2021-07-29] MEDS ORDERED: fentaNYL 250 MCG/5 ML INJECTION (J3010) As Ordered ONE (08:09)
[2021-07-29] MEDS ORDERED: LIDOCAINE 2% 100MG/5ML SDV (FOR ANES.) As Ordered ONE (08:09)
[2021-07-29] MEDS ORDERED: MIDAZOLAM INJ 2MG/2ML VIAL (J2250 PER 1MG) As Ordered ONE (08:10)
[2021-07-29] MEDS ORDERED: BUPIVACAINE/EPIN 0.25% 30 ML VIAL As Ordered ONE (08:16)
[2021-07-29] MEDS ORDERED: BUPIVACAINE HCL 0.25% 10ML VIAL As Ordered ONE (08:16)
[2021-07-29] MEDS ORDERED: BUPIVACAINE LIPOSOME/PF 1.3% 20ML VIAL (13.3MG/ML)(EXPAREL)(C9290 PER1MG) As Ordered ONE (08:16)
[2021-07-29] MEDS ORDERED: dexameTHASONE 4 MG/ML 1ML VIAL (J1100 PER 1MG) As Ordered ONE (08:52)
[2021-07-29] MEDS ORDERED: SUGAMMADEX SODIUM 500 MG/5 ML VIAL (BRIDION) As Ordered ONE (08:52)
[2021-07-29] MEDS ORDERED: KETOROLAC 60MG 2ML VIAL As Ordered ONE (08:52)
[2021-07-29] MEDS ORDERED: ONDANSETRON 4MG/2ML VIAL As Ordered ONE (08:52)
[2021-07-29] MEDS ORDERED: ACETAMINOPHEN 1000MG 100ML IV BTL (OFIRMEV) (J0131 PER 10MG) As Ordered ONE (08:53)
[2021-07-29] MEDS ORDERED: oxyCODONE 5MG TAB PO PRN (09:45)
[2021-07-29] MEDS ORDERED: ONDANSETRON 4MG/2ML VIAL IV PRN (09:45)
[2021-07-29] MEDS ORDERED: LR 1,000 ML IV SCH ×2 (09:45)
[2021-07-29] MEDS ORDERED: traMADol 50 MG TAB PO PRN (09:45)
[2021-07-29] MEDS ORDERED: fentaNYL 100 MCG/2 ML INJECTION (J3010) IV PRN (09:45)
[2021-07-29] MEDS ORDERED: KETOROLAC 30 MG/ML 1ML VIAL IV ONE (09:50)
[2021-07-29 09:58] VITALS: BP 131/98
== END 2021-07-29 11:08 | disposition home or self-care (01) ==
LOC: M SDC 07:25
PROVIDERS: ATTEND Surgery
DX: K42.9 Umbilical hernia without obstruction or gangrene (principal); I10 Essential (primary) hypertension; G47.33 Obstructive sleep apnea (adult) (pediatric); Z79.899 Other long term (current) drug therapy
CPT/HCPCS: 49585; 87426; 88302; C9290; J0131; J0690; J1100; J1885; J2250; J2405; J3010

== ENCOUNTER → 2022-01-22 | Outpatient (CLI) | payer OTHER ==
[~2022-01-22] MED LIST changes: -LR 1,000 ML IV ONE; -ceFAZolin SOD 2 GM in IV 1 EA IV ONE
[2022-01-22 09:50] LABS: BASO % 0.3 % (0.0-1.0); EOS # 0.1 10^3/uL (0.0-0.5); EOS % 1.3 % (0.0-3.0); HEMATOCRIT 44.4 % (42.0-52.0); HEMOGLOBIN 14.9 g/dl (13.5-17.5); LYMPH # 1.3 10^3/uL (1.5-5.0); LYMPH % 13.9 % (24.0-44.0); MEAN CORPUSCULAR HEMOGLOBIN 29.9 pg (27.0-33.0); MEAN CORPUSCULAR HGB CONC 33.6 g/dl (32.0-36.5); MONO % 10.4 % (2.0-8.0); NEUTROPHILS # 6.8 10^3/uL (1.5-8.5); NEUTROPHILS % 73.7 % (36.0-66.0); PLATELET COUNT, AUTOMATED 164 10^3/uL (150-450); RED BLOOD COUNT 4.99 10^6/uL (4.30-6.10); WHITE BLOOD COUNT 9.2 10^3/uL (4.0-10.0)
[2022-01-22 10:24] LABS: ALT/SGPT 20 U/L (12-78); BILIRUBIN,TOTAL 1.6 MG/DL (0.2-1.0); BLOOD UREA NITROGEN 18 MG/DL (7-18); CALCIUM LEVEL 8.6 MG/DL (8.8-10.2); CARBON DIOXIDE LEVEL 28 MEQ/L (21-32); CHLORIDE LEVEL 107 MEQ/L (98-107); CREATININE FOR GFR 1.18 MG/DL (0.70-1.30); GLOMERULAR FILTRATION RATE > 60.0 (>49); GLUCOSE, FASTING 92 MG/DL (70-100); POTASSIUM SERUM 3.8 MEQ/L (3.5-5.1); SODIUM LEVEL 139 MEQ/L (136-145); TOTAL PROTEIN 6.5 GM/DL (6.4-8.2)
== END ==
LOC: M WUC 08:16
PROVIDERS: ATTEND Physician Assistant
DX: L03.116 Cellulitis of left lower limb (principal)

== ENCOUNTER 2022-01-24 07:53 | Emergency (ER) | payer OTHER ==
[~2022-01-24] VITALS: Ht 172.7 cm; Wt 92.7 kg
[2022-01-24] MEDS ORDERED: CEPH500C PO (08:10)
[2022-01-24 08:48] LABS: BASO % 0.5 % (0.0-1.0); EOS # 0.3 10^3/uL (0.0-0.5); EOS % 3.5 % (0.0-3.0); HEMATOCRIT 42.7 % (42.0-52.0); HEMOGLOBIN 14.6 g/dl (13.5-17.5); LYMPH # 1.6 10^3/uL (1.5-5.0); LYMPH % 20.7 % (24.0-44.0); MEAN CORPUSCULAR HEMOGLOBIN 30.7 pg (27.0-33.0); MEAN CORPUSCULAR HGB CONC 34.2 g/dl (32.0-36.5); MEAN CORPUSCULAR VOLUME 89.7 fl (80.0-96.0); MONO # 0.9 10^3/uL (0.0-0.8); MONO % 11.1 % (2.0-8.0); NEUTROPHILS # 4.9 10^3/uL (1.5-8.5); NEUTROPHILS % 63.4 % (36.0-66.0); PLATELET COUNT, AUTOMATED 167 10^3/uL (150-450); RED BLOOD COUNT 4.76 10^6/uL (4.30-6.10); WHITE BLOOD COUNT 7.7 10^3/uL (4.0-10.0)
[2022-01-24 09:06] LABS: BLOOD UREA NITROGEN 20 MG/DL (7-18); C REACTIVE PROTEIN QUANTITATIV 1.27 MG/DL (0.00-0.30); CALCIUM LEVEL 8.9 MG/DL (8.8-10.2); CARBON DIOXIDE LEVEL 24 MEQ/L (21-32); CHLORIDE LEVEL 113 MEQ/L (98-107); CREATININE FOR GFR 1.05 MG/DL (0.70-1.30); GLOMERULAR FILTRATION RATE > 60.0 (>49); GLUCOSE, FASTING 94 MG/DL (70-100); POTASSIUM SERUM 4.1 MEQ/L (3.5-5.1); SODIUM LEVEL 143 MEQ/L (136-145)
[2022-01-24 09:10] LABS: ERYTHROCYTE SEDIMENTATION RATE 10 mm/hr (0-20)
[2022-01-24] MEDS ORDERED: DOXY-443 PO (11:19)
[2022-01-24] MEDS ORDERED: DOXYCYCLINE HYCLATE 100MG TABLET PO ONE (11:20)
[2022-01-24 11:34] VITALS: BP 138/95
== END 2022-01-24 11:36 | disposition home or self-care (01) ==
LOC: M ED 07:53
DX: L08.89 Other specified local infections of the skin and subcutaneous tissue (principal); I10 Essential (primary) hypertension; Z79.811 Long term (current) use of aromatase inhibitors; Z79.899 Other long term (current) drug therapy

== ENCOUNTER → 2023-10-11 | Outpatient (CLI) | payer OTHER ==
[~2023-10-11] MED LIST changes: +CEPH500C PO; +DOXY-443 PO
== END ==
LOC: M SLEEP 20:00
PROVIDERS: ATTEND Physician Assistant
DX: G47.33 Obstructive sleep apnea (adult) (pediatric) (principal)

== ENCOUNTER → 2023-11-30 | Outpatient (REF) | payer OTHER ==
[~2023-11-30] MED LIST changes: +DOXY-323 PO; -DOXY-443 PO
[2023-11-30 17:22] LABS: ALBUMIN 4.1 G/DL (3.2-5.2); BILIRUBIN,DIRECT 0.3 MG/DL (<0.4); BILIRUBIN,TOTAL 0.9 MG/DL (0.3-1.2); TOTAL PROTEIN 6.3 G/DL (5.7-8.2)
== END ==
LOC: M LABWUC 16:30
PROVIDERS: ATTEND Podiatrist
DX: Z51.81 Encounter for therapeutic drug level monitoring (principal)

== ENCOUNTER → 2024-09-22 | Outpatient (CLI) | payer OTHER ==
[~2024-09-22] MED LIST changes: -DOXY-323 PO; +DOXY-441 PO
== END ==
LOC: M RAD 14:03
PROVIDERS: ATTEND Orthopaedic Surgery
DX: M79.602 Pain in left arm (principal)

== ENCOUNTER → 2024-11-11 | Outpatient (REF) | payer OTHER ==
[~2024-11-11] MED LIST changes: +NITR100C2
== END ==
LOC: M LAB REF 18:55
PROVIDERS: ATTEND Physician Assistant Medical
DX: N39.0 Urinary tract infection, site not specified (principal)

== ENCOUNTER 2024-11-13 04:41 | Emergency (ER) | payer OTHER ==
[~2024-11-13] VITALS: Ht 172.7 cm; Wt 92.6 kg
[~2024-11-13 04:41] MED LIST changes: -NITR100C2
[2024-11-13] MEDS: METOCLOPRAMIDE INJ 10MG/2ML VIAL IV ONE (06:55)
[2024-11-13] MEDS: NS (Normal Saline) 0.9% 1,000 ML IV ONE (06:55)
[2024-11-13] MEDS: diphenhydrAMINE 50MG/ML VIAL IV ONE (06:55)
[2024-11-13] MEDS: KETOROLAC 30 MG/ML 1ML VIAL IV ONE (06:55)
[2024-11-13] MEDS ORDERED: NITR100C2 (06:56)
[2024-11-13 07:38] LABS: KETONE, URINE AUTO RFX TRACE mg/dL (NEGATIVE); MUCUS, URINE RFX SMALL (NEGATIVE); NITRITE, URINE AUTO RFX NEGATIVE (NEGATIVE); RBC, URINE AUTO RFX 18 /HPF (0-3); SQUAM EPITHELIAL CELL UR AURFX 1 /HPF (0-6)
[2024-11-13 07:41] LABS: LEUKOCYTE ESTERASE UR AUTO RFX TRACE (NEGATIVE); WBC, URINE AUTO RFX 28 /HPF (0-3)
[2024-11-13 08:39] LABS: BASO % 0.6 % (0.0-1.0); EOS % 0.7 % (0.0-3.0); HEMATOCRIT 38.5 % (42.0-52.0); HEMOGLOBIN 13.5 g/dl (13.5-17.5); LYMPH # 0.5 10^3/uL (1.5-5.0); LYMPH % 9.4 % (24.0-44.0); MEAN CORPUSCULAR HEMOGLOBIN 30.8 pg (27.0-33.0); MEAN CORPUSCULAR HGB CONC 35.1 g/dl (32.0-36.5); MEAN CORPUSCULAR VOLUME 87.9 fl (80.0-96.0); MONO # 0.9 10^3/uL (0.0-0.8); MONO % 16.2 % (2.0-8.0); NEUTROPHILS # 3.9 10^3/uL (1.5-8.5); PLATELET COUNT, AUTOMATED 123 10^3/uL (150-450); RED BLOOD COUNT 4.38 10^6/uL (4.30-6.10); WHITE BLOOD COUNT 5.4 10^3/uL (4.0-10.0)
[2024-11-13 09:14] LABS: CALCIUM LEVEL 7.8 MG/DL (8.3-10.6); GLOMERULAR FILTRATION RATE 84.1 (>49); POTASSIUM SERUM 3.6 MMOL/L (3.5-5.1)
[2024-11-13] MEDS: ACETAMINOPHEN *IV* 1,000 MG in IV 1 EA IV ONE (09:31)
[2024-11-13 14:00] VITALS: BP 151/92; TEMP 99.3; O2SAT 96
== END 2024-11-13 14:09 | disposition home or self-care (01) ==
LOC: M ED 04:41
DX: G43.909 Migraine, unspecified, not intractable, without status migrainosus (principal); N39.0 Urinary tract infection, site not specified; I10 Essential (primary) hypertension; Z79.899 Other long term (current) drug therapy
CPT/HCPCS: 70450; 80048; 81001; 85025; 87086; 87486; 87581; 87633; 87798; 96361; 96365; 96375; 99285; J0131; J1200; J1885; J2765

== ENCOUNTER → 2024-12-05 | Outpatient (CLI) | payer OTHER ==
[~2024-12-05] MED LIST changes: +ISOVUE-370 76% 100ML VIAL As Ordered ONE; +NITR100C2
== END ==
LOC: M RAD 15:46
PROVIDERS: ATTEND Physician Assistant Medical
DX: R31.9 Hematuria, unspecified (principal); N39.0 Urinary tract infection, site not specified; M54.50 Low back pain, unspecified

== ENCOUNTER → 2025-02-06 | Outpatient (CLI) | payer OTHER ==
[~2025-02-06] MED LIST changes: -ISOVUE-370 76% 100ML VIAL As Ordered ONE
== END ==
LOC: M WUC 15:25
PROVIDERS: ATTEND Nurse Practitioner Family
DX: Z12.5 Encounter for screening for malignant neoplasm of prostate (principal)
CPT/HCPCS: 36415; G0103

== ENCOUNTER → 2025-05-18 | Outpatient (REF) | payer OTHER | LOC: M LAB REF 12:07 | PROVIDERS: ATTEND Family Medicine | DX: N39.0 Urinary tract infection, site not specified (principal) ==